=== PATIENT | female | born 1975 | race Caucasian/White ===

== ENCOUNTER → 2022-05-19 02:14 | Outpatient (CLI) | payer OTHER, SELFPAY ==
[2022-05-19 10:38] LABS: Influenza A QL RT-PCR Negative (Negative); Influenza B QL RT-PCR Negative (Negative); SARS-CoV-2 RNA PCR Negative
== END ==
PROVIDERS: PCP Family Medicine; Visit Provider Family Medicine
DX: J06.9 Acute upper respiratory infection, unspecified (principal); Z20.822 Contact with and (suspected) exposure to COVID-19
CPT/HCPCS: 87502; C9803; U0003; U0005

== ENCOUNTER 2022-07-15 12:57 | Inpatient (IN) | payer OTHER, SELFPAY ==
[2022-07-15] VITALS (22 sets, daily range): BP systolic 143–179; BP diastolic 54–92; PULSE 82–94; RESP 12–28; TEMP 36.5–36.8; O2SAT 96–100; BMI 34.0
--- NOTE | ~2022-07-15 | NM_ITS ---
EXAMINATION: NM hepatobiliary wo pharm DATE: 07/17/2022 12:39 INDICATION: Gallstones. Elevated liver function tests. COMPARISON: CT and ultrasound dated 07/15/2022 TECHNIQUE: 5 mCi Tc-99m mebrofenin (Choletec) was administered intravenously. Scintigraphic images o f the abdomen were obtained for one hour. FINDINGS: There is both delayed clearance of radiotracer from the blood pool and the heart and spleen as well as decreased excretion of activity from the liver. Small amount of activity is seen in the c ommon bile duct by 25 minutes and in the duodenum at 30 minutes) with very little total activity in t he small bowel by 60 minutes. There is also minimal activity visible in the gallbladder on the 55 and 60 minute images. No evident biliary ductal dilation on either the prior ultrasound or CT which woul d favor a nonspecific hepatopathy such as hepatitis. IMPRESSION: 1. Delayed clearance of blood pool activity and markedly decreased hepatic excretion of activity mayur pite no significant delay in appearance of the minimal amount of excreted activity in the common bile duct and small bowel. This along with the absence of appreciable either intrahepatic or extra hepati c biliary ductal dilation on prior imaging would favor hepatocellular dysfunction such as in the sett ing of hepatitis or more peripheral biliary obstruction at the level level of the canaliculi over a more central biliary obstruction. Reviewed, dictated and finalized at location A. TRIMMER IMPRESSION: 1. Delayed clearance of blood pool activity and markedly decreased hepatic exc retion of activity despite no significant delay in appearance of the minimal am ount of excreted activity in the common bile duct and small bowel. This along w ith the absence of appreciable either intrahepatic or extra hepatic biliary clark keegan dilation on prior imaging would favor hepatocellular dysfunction such as in the setting of hepatitis or more peripheral biliary obstruction at the level l evel of the canaliculi over a more central biliary obstruction.
--- NOTE | ~2022-07-15 | MR_ITS ---
EXAMINATION: MR MRCP wo/w con/w 3D wo ind DATE: 07/19/2022 15:31 INDICATION: Hyperbilirubinemia. TECHNIQUE: Magnetic resonance imaging (MRI) of the abdomen was performed without and with 17 mL Multi Cuong intravenous contrast. Sequences included coronal T2-weighted FS FSE, coronal T2-weighted FSE, a xial T1-weighted LAVA, coronal FS FIESTA, axial dual-echo T1-weighted SPGR, coronal lava-FLEX, sagitt al T2-weighted FSE, axial T2-weighted FSE, and axial DWI. Thick-slab T2-weighted FSE images were obta ined for magnetic resonance cholangiopancreatography (MRCP). Maximum intensity projection 3-D reconst ructions of the volumetric data were created by the technologist. Postcontrast sequences included cor onal LAVA-flex and time course of axial T1-weighted LAVA. COMPARISON: CT abdomen and pelvis 07/15/2022 FINDINGS: ABDOMEN MRI: There are small pleural effusions. There is diffuse hepatic steatosis. The gallbladder i s contracted. There is moderate splenomegaly measuring 16.4 cm. There is a small peripheral infarct i n the spleen. The pancreas, adrenal glands, and kidneys are normal. There are no dilated loops of bow el. There is a 2.6 cm cyst in right adnexa, likely a dominant follicle. There are no pathologically e nlarged lymph nodes. There is trace perisplenic ascites. ABDOMEN MRCP: The common duct is normal and measures 3 mm. No choledocholithiasis. IMPRESSION: 1. Moderate splenomegaly. 2. Small peripheral infarct in the spleen. 3. Diffuse hepatic steatosis. 4. Small pleural effusions. 5. Trace ascites. Reviewed, dictated and finalized at location A. R MANAGER
--- NOTE | ~2022-07-15 | CT_ITS ---
EXAMINATION: CT abdomen pelvis w con DATE: 07/15/2022 18:04 INDICATION: abd pain TECHNIQUE: Computed tomography (CT) of the abdomen and pelvis was performed with 100 mL Omnipaque-350 intravenous contrast. Automated exposure control and iterative reconstruction technique were employe d. The dose-length product was 782.21 mGy-cm. COMPARISON: 05/06/2017. FINDINGS: Lower thorax: Moderate coronary artery calcification. Liver: Enlarged. Biliary/Gallbladder: Partially collapsed. No bile duct dilation. Pancreas: No mass or duct dilation. Spleen: Enlarged Adrenals:No mass. Kidneys: No suspicious mass, stone, or hydronephrosis. Right midpole AML. GI tract: Distal esophageal and gastric wall edema. No small or large bowel dilation. Normal appendix . Mesentery/Peritoneum: Upper abdominal and periaortic lymphadenopathy. Retroperitoneum: No mass. Pelvis: Pelvic organs are within normal limits. Soft Tissues: Bilateral inguinal lymphadenopathy, otherwise the soft tissues tissues and body wall ar e unremarkable. Bones: No acute osseous finding. IMPRESSION: Esophagitis/gastritis. Hepatosplenomegaly. Abdominal and bilateral inguinal lymphadenopathy. Reviewed, dictated and finalized at location K. IMPRESSION: Esophagitis/gastritis. Hepatosplenomegaly. Abdominal and bilateral inguinal lym phadenopathy.
--- NOTE | ~2022-07-15 | US_ITS ---
EXAMINATION: US abdomen limited DATE: 07/15/2022 16:13 INDICATION: abd pain TECHNIQUE: Multiple grayscale and Doppler ultrasound images of limited portions of the abdomen were o btained. COMPARISON: CT abdomen pelvis 05/06/2017. FINDINGS: The visualized portions of the pancreas are normal. The liver is enlarged with increased ec hogenicity and somewhat heterogeneous echotexture. No surface nodularity. Normal hepatopetal flow in the main portal vein. Partially collapsed gallbladder, no wall thickening, 5 mm adherent nonshadowing echogenic focus near the gallbladder neck. The common bile duct measures 3 mm. There was no sonograp hic García sign. IMPRESSION: Hepatomegaly. Echogenic liver, most commonly due to steatosis but also can be seen with hepatitis and fibrosis. 5 mm adherent gallbladder stone, sludge ball, or polyp. Reviewed, dictated and finalized at location K. IMPRESSION: Hepatomegaly. Echogenic liver, most commonly due to steatosis but also can be s een with hepatitis and fibrosis. 5 mm adherent gallbladder stone, sludge ball, or polyp.
--- NOTE | ~2022-07-15 | US_ITS ---
EXAMINATION: US biopsy liver DATE: 07/20/2022 12:46 INDICATION: Increasing liver function tests TECHNIQUE: The procedure including the risks and benefits was discussed with the patient. Risks discu ssed included bleeding and infection. The patient understood the risks and agreed to proceed. The sk in overlying the left hepatic lobe was prepped and draped in usual sterile fashion. Anesthetic was a dministered with 1% lidocaine subcutaneously. An 18 gauge core biopsy needle was advanced under cont inuous ultrasound observation into the liver. 3 core biopsy specimens were obtained. The needle was removed and the entry site was cleaned and dressed. Post procedure ultrasound demonstrated no hemor rhage. FINDINGS: Ultrasound images demonstrate biopsy needle advanced into the left hepatic lobe for random liver biopsy. IMPRESSION: 1. Successful Ultrasound-guided random liver biopsy. Reviewed, dictated and finalized at location A. LY LAW MEDIATOR
--- NOTE | 2022-07-15 13:30 | ED.NAVMDI ---
HPI - Nausea/Vomiting/Diarrhea General Chief complaint: Nausea/Vomiting/Diarrhea Stated complaint: N/V Time Seen by Provider: 07/15/22 13:08 Source: RN notes reviewed History of Present Illness HPI Narrative: Patient presents emergency room from home for nausea vomiting.. Patient states he has been having nausea vomiting for the past 1 week states she has been vomiting approximately 1-2 times a day states that she has had no fevers or chills she denies any abdominal pain she denies any sore throat chest pain cough shortness of breath or any other symptoms. States she does not take any medication for the symptoms patient states she has been feeling dehydrated Related Data Home Medications Medication Instructions Recorded Confirmed Adult Aspirin Regimen 325 mg PO DAILY 07/15/22 07/16/22 Allergies Allergy/AdvReac Type Severity Reaction Status Date / Time adhesive tape Allergy Severe colon to Verified 07/16/22 00:17 skin Review of Systems Review of Systems: Gen.: Denies fevers or chills ENT: reports rhinorrhea Respiratory: Denies shortness of breath or cough CV: Denies chest pain or palpitations GI: See HPI denies burning, urgency, frequency or hematuria Musculoskeletal: Denies back pain or muscle pain Neuro: Denies numbness, tingling, weakness or focal weakness Skin: Denies rash Except as documented, all other systems reviewed and negative [facility] Past Medical History Medical History (Updated 07/16/22 @ 14:26 by Sydnie Cespedes APRN) Diabetes History of CVA (cerebrovascular accident) Hyperlipidemia Hypertension Seasonal allergic rhinitis Surgical History Surgical History H/O section Family History Family History Father Diabetes mellitus Hypertension Depression Mother Hypertension Grandparent Hypertension Cerebrovascular accident Son Asthma Social History Social History Smoking status: Never smoker Alcohol intake: current Drinks per week: 1 Alcohol use details: seldom; socially Substance use: never Substance use type: does not use Has the Lack of Transportation Kept You From Medical Appointments or From Getting Medications?: No Within the Past 12 Months, Were You Worried Whether Your Food Would Run Out Before You Got Money to Buy More?: Never True What is Your Housing Situation Today?: I Have Housing Are You Worried That in the Next 2 Months, You May Not Have Your Own Housing to Live In?: No Do You Have Trouble Paying Your Heating Or Electricity Bill?: No Do You Have Trouble Paying For Medicines?: No Are You Currently Unemployed and Looking for Work?: No Highest Level of Education Completed: High School Diploma/GED Do You Have Trouble With Childcare or the Care of a Family Member?: No Spiritual care concerns: No Exam Narrative: APPEARANCE: No acute distress, nontoxic, resting in bed EYES: EOMI HEENT: Normocephalic, atraumatic, RESPIRATORY: No respiratory distress Clear to auscultation bilaterally with no rhonchi wheezing or rales. CARDIOVASCULAR: Regular rate and rhythm without murmurs rubs or gallops. ABDOMINAL: Soft, nontender, nondistended, no rebound or guarding MUSCULOSKELETAl: Moves all extremities. No clubbing, cyanosis or edema. NEURO: Awake and alert. Following commands, speech normal, no focal deficits SKIN:: Warm, dry. No rashes lesions or abrasions PSYCHIATRIC: Normal affect/mood, Course Course Emergency Course: Discussed with Dr Cook agrees with consult with continued hydration recommends hepatitis panel Discussed with ANDERS Koch for Dr. Guzman agrees with admission Discussed with patient and family results of workup and diagnosis. Discussed need for admission. Patient and family understand and agree to current treatment plan Vital Signs Vital sign
[2022-07-15] MEDS: SODIUM CHLORIDE 0.9% IV 1,000 ML 999 ML IV CONT ×2 (13:35→13:55)
[2022-07-15] MEDS: FAMOTIDINE 20 MG/2 ML VIAL IV PUSH (13:36)
[2022-07-15] MEDS: ONDANSETRON INJ 4 MG/2 ML VIAL IV PUSH ×2 (13:36→23:26)
[2022-07-15 13:38] LABS: Basophils Absolute Auto 0.1 K/mm3 (0.0-0.1); Basophils Percent Auto 1.2 % (0.2-1.2); Eosinophils Percent Auto 0.5 % (0-4.4); Hematocrit 44.8 % (37.0-47.0); Hemoglobin 14.9 g/dL (12.0-15.0); Immature Granulocyte Absolute 0.04 K/mm3 (0.00-0.031); Lymphocytes Absolute Auto 2.29 K/mm3 (0.9-3.2); Lymphocytes Percent Auto 55.3 % (18.3-44.2); Mean Corpuscular HGB Conc 33.3 g/dl (32-36); Mean Corpuscular Hemoglobin 27.4 pg (26-34); Mean Corpuscular Volume 82.4 fl (80-100); Mean Platelet Volume 9.7 fl (7.4-10.4); Monocytes Absolute Auto 0.4 K/mm3 (0.1-0.6); Monocytes Percent Auto 8.9 % (2.6-8.5); Neutrophils Absolute Auto 1.4 K/mm3 (1.3-6.7); Neutrophils Percent Auto 33.1 % (45.5-73.1); Platelet Count Result 183 k/mm3 (150-375); Red Blood Count 5.44 M/mm3 (4.2-5.4); White Blood Count 4.1 K/mm3 (4.5-10.0)
[2022-07-15 13:50] LABS: Alanine Aminotransferase 205 U/L (6-35); Albumin Level 3.7 g/dL (3.5-5.1); Alkaline Phosphatase 779 U/L (38-126); Anion Gap 15 mmol/L (8-16); Aspartate Amino Transferase 173 U/L (14-36); Bilirubin,Total 3.4 mg/dL (0.2-1.3); Blood Urea Nitrogen 8 mg/dL (7-17); Carbon Dioxide 25 mmol/L (22-30); Chloride 95 mmol/L (98-107); Estimated CRCL calculation 87 ml/min; Estimated Glomerular Filt Rate > 60; Glucose 364 mg/dL (65-110); Lipase 65 U/L (23-300); Potassium 4.3 mmol/L (3.4-5.0); Sodium 135 mmol/L (137-145)
[2022-07-15 14:03] LABS: Appearance Urine Clear (Clear); Bilirubin Urine 3+ (Negative); Blood Urine Negative (Negative); Color Urine Amber (Yellow); Glucose Urine UA 3+ mg/dL (Negative); Ketones Urine Trace mg/dL (Negative); Leukocyte Esterase Ur Negative LEU/UL (Negative); Nitrate Urine Negative (Negative); Protein Urine 1+ mg/dL (Negative); Urobilinogen Urine >=8.0 mg/dL (<2.0)
[2022-07-15 14:12] LABS: Bacteria Urine Trace /hpf; Hyaline Casts Urine 15-19 /lpf; Mucus Urine Rare /lpf; Squamous Epithelial Cell Urine Many /hpf (Few)
[2022-07-15 14:26] LABS: Add Urine Microscopic? YES
[2022-07-15 15:08] LABS: Platelet Estimate Adequate (Adequate); Schistocytes None Seen (NORMAL)
[2022-07-15] MEDS: PROMETHAZINE HCL 25 MG/ML AMPUL 12.5 MG IV PUSH (16:39)
[2022-07-15] MEDS: KETOROLAC 30 MG/ML VIAL (*BKC) IV PUSH (16:48)
[2022-07-15 20:14] LABS: SARS-CoV-2 RNA PCR Negative
--- NOTE | 2022-07-15 20:27 | PM.IMHP ---
H&P: HPI History of Present Illness Date/Time: 07/15/22 20:27 Chief Complaint: nausea, vomiting, diarrhea Narrative: This is a 46-year-old female with past medical history significant for hypertension, dyslipidemia, obesity. patient presents to the emergency room due to nausea, vomiting, diarrhea for several days, denies any fevers, rigors, chills, cough, sputum production, sore throat, body aches and pains, weight loss, no abdominal pain. Preliminary workup was significant for AST/AST and alk phos 173 / 205 /779, TOTAL BILI 3.4 URINE SHOWED 10-[address] OF ABDOMEN WAS REPORTED : IMPRESSION: Esophagitis/gastritis. Hepatosplenomegaly. Abdominal and bilateral inguinal lymphadenopathy. RIGHT UPPER QUADRANT ULTRASOUND WAS REPORTED : IMPRESSION: Hepatomegaly. Echogenic liver, most commonly due to steatosis but also can be seen with hepatitis and fibrosis. 5 mm adherent gallbladder stone, sludge ball, or polyp. Review of Systems Review of Systems: NAUSEA, VOMITING, DIARRHEA. Constitutional: Constitutional: Denies body ache(s), Denies chills, Denies fatigue, Denies fever(s), Denies malaise and Denies night sweats Eyes: Eyes: Denies change in vision ENT: Denies dysphagia, Denies vertigo, Denies dizziness and Denies odynophagia Cardiovascular: Cardiovascular: Denies chest pain, Denies leg edema and Denies dyspnea Respiratory: Respiratory: Denies chest congestion and Denies cough Gastrointestinal: Gastrointestinal: Denies abdominal pain, Denies dyspepsia, Denies heartburn, Reports diarrhea, Reports nausea and Reports vomiting Genitourinary: Genitourinary: Denies dysuria Musculoskeletal: Musculoskeletal: Denies arthralgias Integumentary/Breasts: Skin/Breast: Denies rash Neurologic: Denies vertigo, Denies dizziness, Denies focal weakness and Denies Sensory deficit (Neuro) Psychiatric: Psychiatric: Reports no additional psychiatric complaints and Reports as per HPI Endocrine: Endocrine: Denies cold intolerance, Denies flushing, Denies heat intolerance, Denies polyphagia, Denies polydipsia and Denies palpitations Hematologic/Lymphatic: Hematologic/Lymphatic: Reports no additional hematologic/lymphatic complaints and Reports as per HPI Allergic/Immunologic: Allergic/Immunologic: Reports no additional allergic/immunologic complaints and Reports as per HPI [facility] Past Medical History Medical History Diabetes History of CVA (cerebrovascular accident) Hyperlipidemia Hypertension Seasonal allergic rhinitis Surgical History Surgical History H/O section Family History Family History Father Diabetes mellitus Hypertension Depression Mother Hypertension Grandparent Hypertension Cerebrovascular accident Son Asthma Social History Social History Smoking status: Never smoker Alcohol intake: current Drinks per week: 1 Alcohol use details: seldom; socially Substance use: never Substance use type: does not use Has the Lack of Transportation Kept You From Medical Appointments or From Getting Medications?: No Within the Past 12 Months, Were You Worried Whether Your Food Would Run Out Before You Got Money to Buy More?: Never True What is Your Housing Situation Today?: I Have Housing Are You Worried That in the Next 2 Months, You May Not Have Your Own Housing to Live In?: No Do You Have Trouble Paying Your Heating Or Electricity Bill?: No Do You Have Trouble Paying For Medicines?: No Are You Currently Unemployed and Looking for Work?: No Highest Level of Education Completed: High School Diploma/GED Do You Have Trouble With Childcare or the Care of a Family Member?: No Spiritual care concerns: No Meds Home Medications and Allergies Home
--- NOTE | 2022-07-15 20:50 | ADMGEN ---
This patient, Dinora Devine, was admitted to Medical Room 343-01. Patient/family oriented to hospital policies and general routines including ID bracelet, bed and alarms, visiting hours, pain management, procedures, bathroom and other care routines, personal items, smoking policy, room service/diet, and visiting hours. Information on how to activate the Rapid Response Team has been discussed. Patient/Family are encouraged to report perceived risks to care and to ask questions if they do not understand what they are told or what they should do.
[2022-07-15 21:20] LABS: Glucose Point of Care 184 mg/dl (65-105)
[2022-07-15 22:13] LABS: Hepatitis B Surface Antigen Negative (Negative)
[2022-07-15] MEDS: SODIUM CHLORIDE 0.9% IV 1,000 ML 125 ML IV CONT (22:20)
[2022-07-15 22:28] LABS: Hepatitis B Core IgM Result Negative (Negative)
[2022-07-15 22:30] LABS: Hepatitis C Virus Antibody Negative (Negative)
[2022-07-16] MEDS: traZODone HCL 50 MG TABLET PO (00:10)
--- NOTE | 2022-07-16 01:37 | PC.NURSE ---
Daylight Savings Time For Daylight Savings Time Ending in the Fall - Clocks are moved back. For Daylight Savings Time Beginning in the Spring - Clocks are moved ahead. For [facility], the time of change occurs at 0200 hrs. Time is taken from the seismic prospecting observer helper. This entry on the patient's chart recognizes the change in time reflected during documentation. Example: 2 entries for vital signs may be charted for 0200 hrs.
[2022-07-16] MEDS: ONDANSETRON INJ 4 MG/2 ML VIAL IV PUSH ×2 (02:44→15:27)
[2022-07-16 03:39] LABS: HAV RESULT Negative (Negative)
[2022-07-16 05:12] VITALS: BP 160/75; PULSE 89; RESP 20; TEMP 36.7; O2SAT 98
[2022-07-16 06:50] LABS: Basophils Absolute Auto 0.1 K/mm3 (0.0-0.1); Basophils Percent Auto 1.4 % (0.2-1.2); Eosinophils Percent Auto 0.2 % (0-4.4); Hematocrit 39.1 % (37.0-47.0); Hemoglobin 12.9 g/dL (12.0-15.0); Immature Granulocyte Absolute 0.02 K/mm3 (0.00-0.031); Immature Granulocyte Percent A 0.5 % (0-0.5); Lymphocytes Absolute Auto 2.79 K/mm3 (0.9-3.2); Mean Corpuscular Hemoglobin 27.6 pg (26-34); Mean Corpuscular Volume 83.7 fl (80-100); Mean Platelet Volume 9.3 fl (7.4-10.4); Monocytes Absolute Auto 0.3 K/mm3 (0.1-0.6); Monocytes Percent Auto 7.9 % (2.6-8.5); Neutrophils Percent Auto 23.3 % (45.5-73.1); Platelet Count Result 183 k/mm3 (150-375); Red Blood Count 4.67 M/mm3 (4.2-5.4); Red Cell Distribution Width 13.2 % (11.5-14.5); White Blood Count 4.2 K/mm3 (4.5-10.0)
[2022-07-16 06:55] LABS: Alanine Aminotransferase 197 U/L (6-35); Albumin Level 3.2 g/dL (3.5-5.1); Alkaline Phosphatase 631 U/L (38-126); Anion Gap 10 mmol/L (8-16); Aspartate Amino Transferase 161 U/L (14-36); Bilirubin,Total 2.7 mg/dL (0.2-1.3); Blood Urea Nitrogen 7 mg/dL (7-17); Calcium 8.2 mg/dL (8.4-10.2); Carbon Dioxide 22 mmol/L (22-30); Chloride 103 mmol/L (98-107); Estimated CRCL calculation 116 ml/min; Estimated Glomerular Filt Rate > 60; Glucose 210 mg/dL (65-110); Lipase 25 U/L (23-300); Potassium 4.2 mmol/L (3.4-5.0); Sodium 135 mmol/L (137-145)
[2022-07-16] MEDS: SODIUM CHLORIDE 0.9% IV 1,000 ML 125 ML IV CONT ×2 (07:08→20:18)
--- NOTE | 2022-07-16 08:27 | WPDGICN ---
Assessment and Plan Assessment and plan (1) Abnormal LFTs: Code(s): R79.89 - Other specified abnormal findings of blood chemistry Status: Acute Assessment and Plan: Patient with elevated LFTs that likely correlates with 1 week of illness with nausea vomiting. Hepatitis is suspected. Imaging studies do reveal apparent gallstone within the gallbladder but no obvious associated inflammation. Initial hepatitis serologies are negative. Plan for additional lab work to include fractionation of bilirubin. As well as alkaline phosphatase. She may benefit from MRCP or HIDA scan but suspect she has underlying hepatitis. Continued supportive care for now strongly advised. (2) UTI (urinary tract infection): Code(s): N39.0 - Urinary tract infection, site not specified Status: Acute Assessment and Plan: UTI suspected by urinalysis. Antibiotic therapy advised at this point. GI Consult Note Consult date/time: 07/16/22 08:27 Reason for consult: Elevated LFTs. HPI: Dinora Devine is a 46 year old female Who reports that she began to have episodes of nausea vomiting 1 week ago. This prompted her to miss several days of work. Because of continued malaise nausea vomiting she presented to the emergency room last evening. She was found to have elevated LFTs. Patient denies any prior history of hepatitis. She has no known exposure for hepatitis. She did has no tattoos. She does not drink alcohol to excess. She has had no recent travel. She has no ill pets. Family history is otherwise noncontributory. Review of Systems Review of Systems: Review of systems noncontributory. [facility] Past Medical History Medical History Diabetes History of CVA (cerebrovascular accident) Hyperlipidemia Hypertension Seasonal allergic rhinitis Surgical History Surgical History H/O section Family History Family History Father Diabetes mellitus Hypertension Depression Mother Hypertension Grandparent Hypertension Cerebrovascular accident Son Asthma Social History Social History Smoking status: Never smoker Alcohol intake: current Drinks per week: 1 Alcohol use details: seldom; socially Substance use: never Substance use type: does not use Has the Lack of Transportation Kept You From Medical Appointments or From Getting Medications?: No Within the Past 12 Months, Were You Worried Whether Your Food Would Run Out Before You Got Money to Buy More?: Never True What is Your Housing Situation Today?: I Have Housing Are You Worried That in the Next 2 Months, You May Not Have Your Own Housing to Live In?: No Do You Have Trouble Paying Your Heating Or Electricity Bill?: No Do You Have Trouble Paying For Medicines?: No Are You Currently Unemployed and Looking for Work?: No Highest Level of Education Completed: High School Diploma/GED Do You Have Trouble With Childcare or the Care of a Family Member?: No Spiritual care concerns: No Meds Home Medications and Allergies Home Medications Medication Instructions Recorded Confirmed Type hydrochlorothiazide 12.5 mg tablet 12.5 mg PO DAILY #90 tabs 12/06/20 07/16/22 Rx lisinopril 20 mg tablet 20 mg PO DAILY #90 tabs 12/06/20 07/16/22 Rx simvastatin 10 mg tablet 10 mg PO DAILY #90 tabs 12/06/20 07/16/22 Rx Adult Aspirin Regimen 325 mg PO DAILY 07/15/22 07/16/22 History Allergies Allergy/AdvReac Type Severity Reaction Status Date / Time adhesive tape Allergy Severe colon to Verified 07/16/22 00:17 skin Vital Signs Vital Signs - 24 hr 07/15/22 13:01 07/15/22 13:16 07/15/22 13:17 Temperature 98.2 F 97.7 F Pulse Rate 93 91 90 Respiratory Rate 16 15 15 Blood Pressure 179/8
[2022-07-16] MEDS: PANTOPRAZOLE SODIUM IV 40 MG VIAL IV PUSH (09:45)
[2022-07-16] MEDS: lisinopriL 20 MG TABLET PO (09:45)
[2022-07-16] MEDS: hydroCHLOROthiazide 12.5 MG CAPSULE PO (09:45)
[2022-07-16 09:52] LABS: Lymphocytes Percent Auto 66.7 % (18.3-44.2)
[2022-07-16 10:39] LABS: Alanine Aminotransferase 178 U/L (6-35); Albumin Level 3.1 g/dL (3.5-5.1); Alkaline Phosphatase 593 U/L (38-126); Aspartate Amino Transferase 151 U/L (14-36); Bilirubin Direct 0.6 mg/dL (0-0.3); Bilirubin,Total 2.4 mg/dL (0.2-1.3)
[2022-07-16 10:40] LABS: Bilirubin Direct 0.7 mg/dL (0-0.3); Bilirubin Indirect 0.5 mg/dL (0-1.1); Bilirubin,Total 2.5 mg/dL (0.2-1.3)
[2022-07-16 10:43] LABS: Hemoglobin A1C 11.2 % (<5.7)
[2022-07-16] MEDS: INSULIN ASPART (*BKC) 100 UNITS/ML SUB-Q ×2 (13:00→18:01)
--- NOTE | 2022-07-16 13:01 | PM.IMPN ---
Progress Note: A&P Assessment and Plan (1) Abnormal LFTs: Code(s): R79.89 - Other specified abnormal findings of blood chemistry Status: Acute Assessment and Plan: Patient admitted for c/o abdominal pain. LFTs elevated on admission- Tbili 3.4, AST 173, ALT 205, Alk Phos 779. CT of abdomen and pelvis with esophagitis/gastritis, hepatosplenomegaly and abdominal and bilateral inguinal lymphadenopathy. right upper quadrant ultrasound shows hepatomegaly, echogenic liver and 5 mm adherent gallbladder stone. hepatitis panel negative. GI consulted and appreciate recommendations. Trend LFTs. HIDA scan ordered and pending. (2) Nausea and vomiting: Qualifiers: Vomiting type: unspecified Qualified Code(s): R11.2 - Nausea with vomiting, unspecified Code(s): R11.2 - Nausea with vomiting, unspecified Status: Acute Assessment and Plan: Likely secondary to above. Continue supportive care and PRN antiemetics. (3) Hypertension: Qualifiers: Hypertension type: essential hypertension Qualified Code(s): I10 - Essential (primary) hypertension Code(s): I10 - Essential (primary) hypertension Status: Acute Assessment and Plan: Chronic, patient reports she has not been taking her antihypertensive medications in the past year. Resumed HCTZ 12.5 mg daily and lisinopril 20 mg daily. Monitor vitals. (4) Hyperlipidemia: Qualifiers: Hyperlipidemia type: unspecified Qualified Code(s): E78.5 - Hyperlipidemia, unspecified Code(s): E78.5 - Hyperlipidemia, unspecified Status: Acute Assessment and Plan: Chronic, holding statin due to elevated LFTs (5) UTI (urinary tract infection): Qualifiers: Urinary tract infection type: site unspecified Hematuria presence: without hematuria Qualified Code(s): N39.0 - Urinary tract infection, site not specified Code(s): N39.0 - Urinary tract infection, site not specified Status: Acute Assessment and Plan: UA with negative nitrates and leukocytes, 3+ glucose, 10-15 WBC and many epi cells. Unclear if true UTI or urgency/frequency secondary to glucosuria, however, patient also c/o right flank pain. Continue Rocephin 1 gram IV Q24 hours. Send urine for culture. (6) Type 2 diabetes mellitus, uncontrolled: Status: Acute Assessment and Plan: Chronic, patient reports diabetes diagnosis in 2010 and was taking metformin for 5-6 years, however, she stopped this due to reading about side effects and has not been taking any other medications. Glucose 210 on admission. A1c 11.2% Start accu-checks AC/HS with aspart low-sliding scale meal correction and basal lantus 13 units at HS. She does not want to start insulin outpatient as she does not like needles; she will likely need multiple oral medications for glucose control. Plan CODE STATUS: FULL CODE Disposition: Home when medically stable. Time Spent With Patient Time with patient: 15 - 25 minutes (>50% time spent with patient education. ) Subjective Date/time seen: 07/16/22 13:01 She reports right flank pain that started today while walking in the hallway. She reports that the pain is chronic, aching and not worsened by anything. She denies abdominal pain, nausea, or emesis. Her urine is dark and she reports urinary frequency. Review of Systems Review of Systems: All systems reviewed & are unremarkable except as noted in HPI and below Exam Narrative: General: No acute distress.?Well-developed adult female sitting up in bed. Mental Status/Psych: Awake, alert and oriented x3 with clear speech. Neutral mood and affect. Pleasant and cooperative. Skin: Skin fair, warm, and without rashes or lesions. Normal color for ethnicity. Fair turgor.? HEENT: Normocephalic. Conjunctivae are clear. Sclera is non-icteric. EOM intact. PERRL. Grossly normal hearing. Oral mucosa moist. Neck: Supple. Heart: S1 and
[2022-07-16 13:05] LABS: Glucose Point of Care 327 mg/dl (65-105)
[2022-07-16 15:34] VITALS: BP 144/77; PULSE 98; RESP 16; TEMP 37.4; O2SAT 99
[2022-07-16 18:02] LABS: Glucose Point of Care 226 mg/dl (65-105)
[2022-07-16 20:08] LABS: Glucose Point of Care 245 mg/dl (65-105)
[2022-07-16] MEDS: INSULIN GLARGINE (*BKC) 100 UNITS/ML 13 UNITS SUB-Q (20:13)
[2022-07-16 21:45] VITALS: BP 169/75; PULSE 90; RESP 16; TEMP 36.7; O2SAT 97
[2022-07-17] MEDS: traZODone HCL 50 MG TABLET PO (02:01)
[2022-07-17] MEDS: SODIUM CHLORIDE 0.9% IV 1,000 ML 125 ML IV CONT ×2 (04:18→17:09)
[2022-07-17] MEDS: ONDANSETRON INJ 4 MG/2 ML VIAL IV PUSH (04:39)
[2022-07-17 05:10] VITALS: BP 172/79; PULSE 90; RESP 18; TEMP 36.5; O2SAT 100
[2022-07-17] MEDS: hydrALAZINE HCL 20 MG/ML VIAL 10 MG IV PUSH ×2 (05:25→20:36)
[2022-07-17 05:42] LABS: Hematocrit 38.3 % (37.0-47.0); Hemoglobin 12.7 g/dL (12.0-15.0); Mean Corpuscular HGB Conc 33.2 g/dl (32-36); Mean Corpuscular Hemoglobin 27.8 pg (26-34); Mean Corpuscular Volume 83.8 fl (80-100); Mean Platelet Volume 9.1 fl (7.4-10.4); Platelet Count Result 181 k/mm3 (150-375); Red Blood Count 4.57 M/mm3 (4.2-5.4); Red Cell Distribution Width 13.2 % (11.5-14.5); White Blood Count 4.8 K/mm3 (4.5-10.0)
[2022-07-17 05:44] LABS: Alanine Aminotransferase 199 U/L (6-35); Albumin Level 3.1 g/dL (3.5-5.1); Alkaline Phosphatase 636 U/L (38-126); Anion Gap 14 mmol/L (8-16); Aspartate Amino Transferase 162 U/L (14-36); Bilirubin,Total 2.9 mg/dL (0.2-1.3); Blood Urea Nitrogen 3 mg/dL (7-17); Calcium 8.4 mg/dL (8.4-10.2); Carbon Dioxide 25 mmol/L (22-30); Chloride 100 mmol/L (98-107); Estimated CRCL calculation 116 ml/min; Estimated Glomerular Filt Rate > 60; Glucose 190 mg/dL (65-110); Potassium 3.6 mmol/L (3.4-5.0); Sodium 139 mmol/L (137-145)
[2022-07-17 06:00] VITALS: BP 157/80
[2022-07-17] MEDS: hydroCHLOROthiazide 12.5 MG CAPSULE PO (08:44)
[2022-07-17] MEDS: lisinopriL 20 MG TABLET PO (08:44)
[2022-07-17] MEDS: LIDOCAINE 5% PATCH 1 PATCH TRANSDERM (08:44)
[2022-07-17] MEDS: PANTOPRAZOLE SODIUM IV 40 MG VIAL IV PUSH (08:45)
[2022-07-17 08:54] LABS: Glucose Point of Care 199 mg/dl (65-105)
--- NOTE | 2022-07-17 12:08 | PM.IMPN ---
Progress Note: A&P Assessment and Plan (1) Abnormal LFTs: Code(s): R79.89 - Other specified abnormal findings of blood chemistry Status: Acute Assessment and Plan: Patient admitted for c/o abdominal pain. LFTs elevated on admission- Tbili 3.4, AST 173, ALT 205, Alk Phos 779. CT of abdomen and pelvis with esophagitis/gastritis, hepatosplenomegaly and abdominal and bilateral inguinal lymphadenopathy. right upper quadrant ultrasound shows hepatomegaly, echogenic liver and 5 mm adherent gallbladder stone. hepatitis panel negative. GI consulted and appreciate recommendations. Trend LFTs-T bili 2.9, AST 162, ALT 199, alk phos 363, mildly increased from yesterday HIDA scan shows delayed clearance and blood pool activity in markedly decreased hepatic excretion of activity that would favor hepatocellular dysfunction in the setting of hepatitis (2) Nausea and vomiting: Qualifiers: Vomiting type: unspecified Qualified Code(s): R11.2 - Nausea with vomiting, unspecified Code(s): R11.2 - Nausea with vomiting, unspecified Status: Acute Assessment and Plan: Likely secondary to above. Continue supportive care and PRN antiemetics. (3) Hypertension: Qualifiers: Hypertension type: essential hypertension Qualified Code(s): I10 - Essential (primary) hypertension Code(s): I10 - Essential (primary) hypertension Status: Acute Assessment and Plan: Chronic, patient reports she has not been taking her antihypertensive medications in the past year. Resumed HCTZ 12.5 mg daily and lisinopril 20 mg daily. Monitor vitals. (4) Hyperlipidemia: Qualifiers: Hyperlipidemia type: unspecified Qualified Code(s): E78.5 - Hyperlipidemia, unspecified Code(s): E78.5 - Hyperlipidemia, unspecified Status: Acute Assessment and Plan: Chronic, holding statin due to elevated LFTs (5) UTI (urinary tract infection): Qualifiers: Hematuria presence: without hematuria Urinary tract infection type: site unspecified Qualified Code(s): N39.0 - Urinary tract infection, site not specified Code(s): N39.0 - Urinary tract infection, site not specified Status: Acute Assessment and Plan: UA with negative nitrates and leukocytes, 3+ glucose, 10-15 WBC and many epi cells. Unclear if true UTI or urgency/frequency secondary to glucosuria, however, patient also c/o right flank pain. Continue Rocephin 1 gram IV Q24 hours. Urine culture shows mixed john, since patient had suprapubic tenderness, we will continue Rocephin x3 doses (6) Type 2 diabetes mellitus, uncontrolled: Qualifiers: Glycemic state: with hyperglycemia Qualified Code(s): E11.65 - Type 2 diabetes mellitus with hyperglycemia Status: Acute Assessment and Plan: Chronic, patient reports diabetes diagnosis in 2010 and was taking metformin for 5-6 years, however, she stopped this due to reading about side effects and has not been taking any other medications. Glucose 210 on admission. A1c 11.2% Start accu-checks AC/HS with aspart low-sliding scale meal correction and basal lantus 13 units at HS. She does not want to start insulin outpatient as she does not like needles; she will likely need multiple oral medications for glucose control. Plan CODE STATUS: FULL CODE Disposition: Home when medically stable. Time Spent With Patient Time with patient: 15 - 25 minutes Subjective Date/time seen: 07/17/22 12:08 She still has urinary frequency. She denies dysuria and right flank pain is improved. She had an episode of emesis overnight and states she usually has this when she feels febrile. No BM since Sunday, which was small, she reports. No chest pain, SOB, palpitations or current nausea at this time. Review of Systems Review of Systems: All systems reviewed & are unremarkable except as noted in HPI and below Exam Narrative: General:
[2022-07-17 12:58] LABS: Glucose Point of Care 133 mg/dl (65-105)
--- NOTE | 2022-07-17 14:29 | WPDGIPROGNO ---
Progress Note: A&P Assessment and Plan (1) Abnormal LFTs: Code(s): R79.89 - Other specified abnormal findings of blood chemistry Status: Acute Assessment and Plan: Patient with elevated LFTs. Appears to have hepatocellular disease by HIDA scan. This is consistent with apparent hepatitis. The etiology of this is unclear. Hepatitis ABC serologies are negative. Continue supportive care for now. Will allow liquid diet and advance as tolerated. (2) Nausea and vomiting: Qualifiers: Vomiting type: unspecified Qualified Code(s): R11.2 - Nausea with vomiting, unspecified Code(s): R11.2 - Nausea with vomiting, unspecified Status: Acute Assessment and Plan: Patient's nausea and vomiting appears to correlate with her hepatitis. Symptoms have been present for 1 week. Plan to continue to monitor LFTs and supportive care for now. Liver biopsy will be deferred unless LFTs continue to rise. (3) Type 2 diabetes mellitus, uncontrolled: Status: Acute (4) UTI (urinary tract infection): Qualifiers: Urinary tract infection type: site unspecified Hematuria presence: without hematuria Qualified Code(s): N39.0 - Urinary tract infection, site not specified Code(s): N39.0 - Urinary tract infection, site not specified Status: Acute Subjective Date/time seen: 07/17/22 14:29 Patient alert this morning sitting in bed. Reports she had emesis during HIDA scan. Denies other pain at present Review of Systems Review of Systems: Review of systems noncontributory. Exam Narrative: Physical exam reveals patient be alert. Vital signs stable. HEENT exam reveals no icterus. Lungs are clear to auscultation and percussion. Heart without murmur. Abdomen is obese soft nontender with no organomegaly. Objective Data Vital Signs Vital Signs: Vital Signs - 24 hr 07/16/22 15:34 07/16/22 21:45 07/17/22 05:10 Temperature 99.3 F 98.0 F 97.7 F Pulse Rate 98 90 90 Respiratory Rate 16 16 18 Blood Pressure 144/77 H 169/75 H 172/79 H Pulse Oximetry 99 97 100 Oxygen Delivery 07/17/22 06:00 07/17/22 08:45 Temperature Pulse Rate Respiratory Rate Blood Pressure 157/80 H Pulse Oximetry Oxygen Delivery Room Air Intake/Output Intake/Output: Intake & Output 07/15/22 07/16/22 07/16/22 07/17/22 00:59 00:59 23:59 23:59 Intake Total 1200 Output Total Balance 1200 Meds/Results Medications: Active Medications Generic Name Dose Route Start Last Admin Trade Name Freq PRN Reason Stop Dose Admin Acetaminophen 325 mg 07/16/22 12:55 Acetaminophen 325 Mg Tablet PO Q6H PRN Mild Pain (1-3) or Fever Dextrose 12.5 gm 07/16/22 08:41 Dextrose 50% 25 Gm/50 Ml Syringe IV PUSH PRN PRN Hypoglycemia Protocol Glucagon 1 mg 07/16/22 08:41 Glucagon For Inj 1 Mg Vial IM PRN PRN Hypoglycemia Protocol Glucose 15 gm 07/16/22 08:41 Glucose Oral Gel 15 Gm Of Glucse In 37.5 Gm Tube PO PRN PRN Hypoglycemia Protocol Hydralazine HCl 10 mg 07/16/22 12:52 07/17/22 05:25 Hydralazine Hcl 20 Mg/Ml Vial IV PUSH 10 mg Q6HR PRN Administration Blood Pressure - High Hydrochlorothiazide 12.5 mg 07/16/22 09:00 07/17/22 08:44 Hydrochlorothiazide 12.5 Mg Capsule PO 12.5 mg DAILY KEV Administration Sodium Chloride 1,000 mls @ 125 mls/hr 07/15/22 19:20 07/17/22 13:05 Normal Saline Iv IV CONT Not Given .Q8H KEV Ceftriaxone Sodium/Dextrose 1 gm in 50 mls @ 100 mls/hr 07/16/22 02:00 07/17/22 02:02 Rocephin 1 Gm/D5w 50 Ml IVPB Infused Q24H KEV Infusion Dextrose 1,000 mls @ 100 mls/hr 07/16/22 08:41 Dextrose 5% 1,000 Ml IVPB PRN PRN Hypoglycemia Protocol Insulin Aspart 2 - 5 units 07/16/22 12:00 07/17/22 12:58 Insulin Aspart (*Bkc) 100 Units/Ml SUB-Q Not Given [facility] Protocol Insulin Glargine 13 units
[2022-07-17 14:46] VITALS: BP 142/69; PULSE 92; RESP 18; TEMP 36.2; O2SAT 98
[2022-07-17 17:15] LABS: Glucose Point of Care 151 mg/dl (65-105)
[2022-07-17] MEDS: INSULIN GLARGINE (*BKC) 100 UNITS/ML 13 UNITS SUB-Q (20:36)
[2022-07-17 21:00] LABS: Glucose Point of Care 171 mg/dl (65-105)
[2022-07-17 21:39] VITALS: BP 172/68; PULSE 100; RESP 16; TEMP 36.7; O2SAT 93
[2022-07-17] MEDS: traMADol HCL (*CRX) 50 MG TABLET PO (23:24)
[2022-07-18] MEDS: SODIUM CHLORIDE 0.9% IV 1,000 ML 125 ML IV CONT (01:33)
[2022-07-18 06:00] VITALS: BP 165/72; PULSE 76; RESP 16; TEMP 36.7; O2SAT 98
[2022-07-18 06:09] LABS: Hematocrit 39.1 % (37.0-47.0); Hemoglobin 12.8 g/dL (12.0-15.0); Mean Corpuscular HGB Conc 32.7 g/dl (32-36); Mean Corpuscular Hemoglobin 27.1 pg (26-34); Mean Corpuscular Volume 82.8 fl (80-100); Mean Platelet Volume 8.7 fl (7.4-10.4); Platelet Count Result 196 k/mm3 (150-375); Red Blood Count 4.72 M/mm3 (4.2-5.4); Red Cell Distribution Width 13.4 % (11.5-14.5); White Blood Count 5.4 K/mm3 (4.5-10.0)
[2022-07-18 06:21] LABS: Alanine Aminotransferase 276 U/L (6-35); Albumin Level 3.1 g/dL (3.5-5.1); Alkaline Phosphatase 720 U/L (38-126); Anion Gap 7 mmol/L (8-16); Aspartate Amino Transferase 285 U/L (14-36); Bilirubin,Total 3.2 mg/dL (0.2-1.3); Blood Urea Nitrogen 5 mg/dL (7-17); Calcium 8.3 mg/dL (8.4-10.2); Carbon Dioxide 25 mmol/L (22-30); Chloride 103 mmol/L (98-107); Estimated CRCL calculation 98 ml/min; Estimated Glomerular Filt Rate > 60; Glucose 132 mg/dL (65-110); Potassium 3.7 mmol/L (3.4-5.0); Sodium 135 mmol/L (137-145)
[2022-07-18 08:58] LABS: Glucose Point of Care 122 mg/dl (65-105)
[2022-07-18] MEDS: hydroCHLOROthiazide 12.5 MG CAPSULE PO (09:17)
[2022-07-18] MEDS: PANTOPRAZOLE SODIUM IV 40 MG VIAL IV PUSH (09:17)
[2022-07-18] MEDS: lisinopriL 20 MG TABLET PO (09:17)
--- NOTE | 2022-07-18 10:15 | WPDGIPROGNO ---
Progress Note: A&P Assessment and Plan (1) Hepatitis: Code(s): K75.9 - Inflammatory liver disease, unspecified Status: Acute Assessment and Plan: Patient with apparent hepatocellular inflammation hepatitis of uncertain etiology. Would be cautious with any new medications. Continue to follow her LFTs conservatively. Should LFTs continue to rise then liver biopsy will be performed. Otherwise typically wait 6 months before performing liver biopsy to give chance for them to normalize. Etiology for hepatitis remains unclear at this point. Will plan to follow as an outpatient. Monitor LFTs more frequently at 1st. Perhaps twice a week for now. Advance diet as tolerated. (2) Abnormal LFTs: Code(s): R79.89 - Other specified abnormal findings of blood chemistry Status: Acute (3) Nausea and vomiting: Qualifiers: Vomiting type: unspecified Qualified Code(s): R11.2 - Nausea with vomiting, unspecified Code(s): R11.2 - Nausea with vomiting, unspecified Status: Acute (4) Type 2 diabetes mellitus, uncontrolled: Qualifiers: Glycemic state: with hyperglycemia Qualified Code(s): E11.65 - Type 2 diabetes mellitus with hyperglycemia Status: Acute Subjective Date/time seen: 07/18/22 10:15 Patient alert fairly comfortable this morning. Tolerated full liquid diet. Only modest abdominal pain described. Review of Systems Review of Systems: Review of systems noncontributory. Exam Narrative: physical exam reveals patient be alert. Vital signs stable. HEENT exam unremarkable. Lungs clear. Heart without murmur. Abdomen is obese soft nontender with no organomegaly. Objective Data Vital Signs Vital Signs: Vital Signs - 24 hr 07/17/22 14:46 07/17/22 21:39 07/18/22 06:00 Temperature 97.2 F L 98.1 F 98.0 F Pulse Rate 92 100 76 Respiratory Rate 18 16 16 Blood Pressure 142/69 H 172/68 H 165/72 H Pulse Oximetry 98 93 98 Intake/Output Intake/Output: Intake & Output 07/16/22 07/16/22 07/17/22 07/18/22 00:59 23:59 23:59 23:59 Intake Total 3440 1290 Output Total Balance 3440 1290 Meds/Results Medications: Active Medications Generic Name Dose Route Start Last Admin Trade Name Freq PRN Reason Stop Dose Admin Acetaminophen 325 mg 07/16/22 12:55 Acetaminophen 325 Mg Tablet PO Q6H PRN Mild Pain (1-3) or Fever Cefdinir 300 mg 07/19/22 09:00 Cefdinir 300 Mg Capsule PO 07/21/22 08:59 Q12HR KEV Dextrose 12.5 gm 07/16/22 08:41 Dextrose 50% 25 Gm/50 Ml Syringe IV PUSH PRN PRN Hypoglycemia Protocol Glucagon 1 mg 07/16/22 08:41 Glucagon For Inj 1 Mg Vial IM PRN PRN Hypoglycemia Protocol Glucose 15 gm 07/16/22 08:41 Glucose Oral Gel 15 Gm Of Glucse In 37.5 Gm Tube PO PRN PRN Hypoglycemia Protocol Hydralazine HCl 10 mg 07/16/22 12:52 07/17/22 20:36 Hydralazine Hcl 20 Mg/Ml Vial IV PUSH 10 mg Q6HR PRN Administration Blood Pressure - High Hydrochlorothiazide 12.5 mg 07/16/22 09:00 07/18/22 09:17 Hydrochlorothiazide 12.5 Mg Capsule PO 12.5 mg DAILY KEV Administration Dextrose 1,000 mls @ 100 mls/hr 07/16/22 08:41 Dextrose 5% 1,000 Ml IVPB PRN PRN Hypoglycemia Protocol Insulin Aspart 2 - 5 units 07/16/22 12:00 07/18/22 09:11 Insulin Aspart (*Bkc) 100 Units/Ml SUB-Q Not Given [facility] Protocol Insulin Glargine 13 units 07/16/22 21:00 07/17/22 20:36 Insulin Glargine (*Bkc) 100 Units/Ml 0.15 units/kg (13 units) 13 units SUB-Q Administration HS [facility] Lidocaine 1 patch 07/17/22 09:00 07/18/22 09:17 Lidocaine 5% Patch TRANSDERM Not Given DAILY [facility] Lisinopril 20 mg 07/16/22 09:00 07/18/22 09:17 Lisinopril 20 Mg Tablet PO 20 mg DAILY KEV Administration Ondansetron HCl 4 mg 07/15/22 19:19 07/17/22 04:39 Ondansetron Inj 4 Mg/2 Ml Vial IV PUSH 4 m
[2022-07-18 10:53] LABS: Prothrombin Time 12.9 Seconds (11.1-14.7)
[2022-07-18 12:26] LABS: Glucose Point of Care 206 mg/dl (65-105)
[2022-07-18] MEDS: INSULIN ASPART (*BKC) 100 UNITS/ML SUB-Q (12:43)
[2022-07-18] MEDS: polyethylene glycoL 3350 17 GM POWD.PACK PO (12:43)
[2022-07-18 14:00] VITALS: BP 150/67; PULSE 86; RESP 16; TEMP 36.6; O2SAT 98
--- NOTE | 2022-07-18 16:46 | PM.IMPN ---
Progress Note: A&P Assessment and Plan (1) Abnormal LFTs: Code(s): R79.89 - Other specified abnormal findings of blood chemistry Status: Acute Assessment and Plan: Patient admitted for c/o abdominal pain. LFTs elevated on admission- Tbili 3.4, AST 173, ALT 205, Alk Phos 779. CT of abdomen and pelvis with esophagitis/gastritis, hepatosplenomegaly and abdominal and bilateral inguinal lymphadenopathy. right upper quadrant ultrasound shows hepatomegaly, echogenic liver and 5 mm adherent gallbladder stone. hepatitis panel negative. GI consulted and appreciate recommendations. Trend LFTs-T bili 2.9, AST 162, ALT 199, alk phos 363, mildly increased from yesterday HIDA scan shows delayed clearance and blood pool activity in markedly decreased hepatic excretion of activity that would favor hepatocellular dysfunction in the setting of hepatitis 07/18/22 LFTs - Tbili 3.2, AST 285, ALT 276, Alk Phos 720. GI following. Advance diet as tolerated. If LFTs continue to rise then will likely need liver biopsy. GI deferring at this time and will monitor trend. (2) Nausea and vomiting: Qualifiers: Vomiting type: unspecified Qualified Code(s): R11.2 - Nausea with vomiting, unspecified Code(s): R11.2 - Nausea with vomiting, unspecified Status: Acute Assessment and Plan: Likely secondary to above. Continue supportive care and PRN antiemetics. Improved (3) Hypertension: Qualifiers: Hypertension type: essential hypertension Qualified Code(s): I10 - Essential (primary) hypertension Code(s): I10 - Essential (primary) hypertension Status: Acute Assessment and Plan: Chronic, patient reports she has not been taking her antihypertensive medications in the past year. BP 150/67, HR 86. Resumed HCTZ 12.5 mg daily and lisinopril 20 mg daily while hospitalized. 07/18/22 Increase HCTZ 25 mg daily Monitor vitals. (4) Hyperlipidemia: Qualifiers: Hyperlipidemia type: unspecified Qualified Code(s): E78.5 - Hyperlipidemia, unspecified Code(s): E78.5 - Hyperlipidemia, unspecified Status: Acute Assessment and Plan: Chronic, holding statin due to elevated LFTs (5) UTI (urinary tract infection): Qualifiers: Urinary tract infection type: site unspecified Hematuria presence: without hematuria Qualified Code(s): N39.0 - Urinary tract infection, site not specified Code(s): N39.0 - Urinary tract infection, site not specified Status: Acute Assessment and Plan: UA with negative nitrates and leukocytes, 3+ glucose, 10-15 WBC and many epi cells. Unclear if true UTI or urgency/frequency secondary to glucosuria, however, patient also c/o right flank pain. Continue Rocephin 1 gram IV Q24 hours. Urine culture shows mixed john, since patient had suprapubic tenderness and unclear if left flank pain from UTI versus hepatomegaly. 07/18/22 transitioned to cefdinir 300 mg PO BID x 4 more day. (7 days total) (6) Type 2 diabetes mellitus, uncontrolled: Qualifiers: Glycemic state: with hyperglycemia Qualified Code(s): E11.65 - Type 2 diabetes mellitus with hyperglycemia Status: Acute Assessment and Plan: Chronic, patient reports diabetes diagnosis in 2010 and was taking metformin for 5-6 years, however, she stopped this due to reading about side effects and has not been taking any other medications. Glucose 210 on admission. A1c 11.2% Start accu-checks AC/HS with aspart low-sliding scale meal correction and basal lantus 13 units at HS. She does not want to start insulin outpatient as she does not like needles; she will likely need multiple oral medications for glucose control. Would avoid metformin, glipizide and glimepiride d/t hepatitis. Could consider SGLT-2, however, she is currently being treated for UTI. DPP-4 is possible but may worsen N/V if still present. Would strongly encourage patient to continue insuli
[2022-07-18 17:06] LABS: Glucose Point of Care 181 mg/dl (65-105)
[2022-07-18] MEDS: BISACODYL 10 MG SUPPOSITORY RECTAL (18:17)
[2022-07-18 20:00] VITALS: PULSE 86; RESP 16; O2SAT 98
[2022-07-18 20:22] LABS: Glucose Point of Care 219 mg/dl (65-105)
[2022-07-18] MEDS: INSULIN GLARGINE (*BKC) 100 UNITS/ML 13 UNITS SUB-Q (20:25)
[2022-07-18 22:00] VITALS: BP 133/63; PULSE 83; RESP 16; TEMP 36.6; O2SAT 97
[2022-07-19] MEDS: traMADol HCL (*CRX) 50 MG TABLET PO (03:14)
[2022-07-19 05:41] LABS: Hematocrit 38.2 % (37.0-47.0); Hemoglobin 12.5 g/dL (12.0-15.0); Mean Corpuscular HGB Conc 32.7 g/dl (32-36); Mean Corpuscular Hemoglobin 27.2 pg (26-34); Platelet Count Result 200 k/mm3 (150-375); Red Cell Distribution Width 13.3 % (11.5-14.5); White Blood Count 5.8 K/mm3 (4.5-10.0)
[2022-07-19 05:54] LABS: Alanine Aminotransferase 295 U/L (6-35); Albumin Level 3.1 g/dL (3.5-5.1); Alkaline Phosphatase 828 U/L (38-126); Anion Gap 11 mmol/L (8-16); Aspartate Amino Transferase 273 U/L (14-36); Bilirubin,Total 4.6 mg/dL (0.2-1.3); Blood Urea Nitrogen 5 mg/dL (7-17); Calcium 8.4 mg/dL (8.4-10.2); Carbon Dioxide 27 mmol/L (22-30); Chloride 99 mmol/L (98-107); Estimated CRCL calculation 98 ml/min; Estimated Glomerular Filt Rate > 60; Glucose 181 mg/dL (65-110); Potassium 3.5 mmol/L (3.4-5.0); Sodium 137 mmol/L (137-145)
[2022-07-19 06:00] VITALS: BP 150/74; PULSE 82; RESP 16; TEMP 36.6; O2SAT 98
--- NOTE | 2022-07-19 07:12 | WPDGIPROGNO ---
Progress Note: A&P Assessment and Plan (1) Hepatitis: Code(s): K75.9 - Inflammatory liver disease, unspecified Status: Acute Assessment and Plan: Patient admitted with inflammation of the liver hepatitis evident. Etiology for this hepatitis is unclear. Initial viral serologies is negative. Additional labs are pending. Patient currently tolerating diet nausea vomiting on presentation as resolved. Recommend discharge with follow-up in the GI office in 1 week. Follow up LFTs perhaps twice weekly until that is accomplished. It is possible she may require liver biopsy ultimately if LFTs continue to increase. Hopefully this can be avoided. Repeat viral serologies in a week is advised. continue low-fat diet as tolerated for now. (2) Type 2 diabetes mellitus, uncontrolled: Qualifiers: Glycemic state: with hyperglycemia Qualified Code(s): E11.65 - Type 2 diabetes mellitus with hyperglycemia Status: Acute (3) UTI (urinary tract infection): Qualifiers: Urinary tract infection type: site unspecified Hematuria presence: without hematuria Qualified Code(s): N39.0 - Urinary tract infection, site not specified Code(s): N39.0 - Urinary tract infection, site not specified Status: Acute Subjective Date/time seen: 07/19/22 07:12 Patient alert comfortable this morning. Tolerating diet. She is afebrile. Denies abdominal pain. Review of Systems Review of Systems: Review of systems noncontributory. Exam Narrative: Physical exam reveals patient to be alert. Vital signs stable. HEENT exam reveals mild icterus. Lungs are clear. Heart without murmur. Abdomen obese bowel sounds present soft nontender with no organomegaly. Objective Data Vital Signs Vital Signs: Vital Signs - 24 hr 07/18/22 09:00 07/18/22 14:00 07/18/22 20:00 Temperature 97.9 F Pulse Rate 86 86 Respiratory Rate 16 16 Blood Pressure 150/67 H Pulse Oximetry 98 98 Oxygen Delivery Room Air Room Air 07/18/22 22:00 07/19/22 06:00 Temperature 97.8 F 97.9 F Pulse Rate 83 82 Respiratory Rate 16 16 Blood Pressure 133/63 150/74 H Pulse Oximetry 97 98 Oxygen Delivery Intake/Output Intake/Output: Intake & Output 07/16/22 07/17/22 07/18/22 07/19/22 23:59 23:59 23:59 23:59 Intake Total 3440 2010 Output Total Balance 3440 2009 Meds/Results Medications: Active Medications Generic Name Dose Route Start Last Admin Trade Name Freq PRN Reason Stop Dose Admin Acetaminophen 325 mg 07/16/22 12:55 Acetaminophen 325 Mg Tablet PO Q6H PRN Mild Pain (1-3) or Fever Bisacodyl 10 mg 07/18/22 12:04 07/18/22 18:17 Bisacodyl 10 Mg Suppository RECTAL 10 mg DAILY PRN Administration Constipation Cefdinir 300 mg 07/19/22 09:00 Cefdinir 300 Mg Capsule PO 07/21/22 08:59 Q12HR KEV Dextrose 12.5 gm 07/16/22 08:41 Dextrose 50% 25 Gm/50 Ml Syringe IV PUSH PRN PRN Hypoglycemia Protocol Glucagon 1 mg 07/16/22 08:41 Glucagon For Inj 1 Mg Vial IM PRN PRN Hypoglycemia Protocol Glucose 15 gm 07/16/22 08:41 Glucose Oral Gel 15 Gm Of Glucse In 37.5 Gm Tube PO PRN PRN Hypoglycemia Protocol Hydralazine HCl 10 mg 07/16/22 12:52 07/17/22 20:36 Hydralazine Hcl 20 Mg/Ml Vial IV PUSH 10 mg Q6HR PRN Administration Blood Pressure - High Hydrochlorothiazide 25 mg 07/19/22 09:00 Hydrochlorothiazide 25 Mg Tablet PO DAILY KEV Dextrose 1,000 mls @ 100 mls/hr 07/16/22 08:41 Dextrose 5% 1,000 Ml IVPB PRN PRN Hypoglycemia Protocol Insulin Aspart 2 - 5 units 07/16/22 12:00 07/18/22 17:02 Insulin Aspart (*Bkc) 100 Units/Ml SUB-Q Not Given [facility]ID[facility] Protocol Insulin Glargine 13 units 07/16/22 21:00 07/18/22 20:25 Insulin Glargine (*Bkc) 100 Units/Ml 0.15 units/kg (13 units) 13 units SUB-Q Administration HS [facility] Lidoca
[2022-07-19 08:04] LABS: Glucose Point of Care 182 mg/dl (65-105)
[2022-07-19] MEDS: hydroCHLOROthiazide 25 MG TABLET PO (08:22)
[2022-07-19] MEDS: lisinopriL 20 MG TABLET PO (08:22)
[2022-07-19] MEDS: CEFDINIR 300 MG CAPSULE PO ×2 (08:22→19:50)
[2022-07-19] MEDS: POTASSIUM CHLORIDE 20 MEQ TABLET.ER PO (08:23)
[2022-07-19] MEDS: polyethylene glycoL 3350 17 GM POWD.PACK PO (08:23)
[2022-07-19] MEDS: LIDOCAINE 5% PATCH 1 PATCH TRANSDERM (08:23)
[2022-07-19] MEDS: PANTOPRAZOLE 40 MG TABLET PO (08:23)
[2022-07-19 12:08] LABS: Glucose Point of Care 211 mg/dl (65-105)
[2022-07-19 14:00] VITALS: BP 135/78; PULSE 88; RESP 20; TEMP 36.6; O2SAT 96
--- NOTE | 2022-07-19 16:50 | PM.IMPN ---
Progress Note: A&P Assessment and Plan (1) Abnormal LFTs: Code(s): R79.89 - Other specified abnormal findings of blood chemistry Status: Acute Assessment and Plan: Patient admitted for c/o abdominal pain. LFTs elevated on admission- Tbili 3.4, AST 173, ALT 205, Alk Phos 779. CT of abdomen and pelvis with esophagitis/gastritis, hepatosplenomegaly and abdominal and bilateral inguinal lymphadenopathy. right upper quadrant ultrasound shows hepatomegaly, echogenic liver and 5 mm adherent gallbladder stone. hepatitis panel negative. GI consulted and appreciate recommendations. HIDA scan shows delayed clearance and blood pool activity in markedly decreased hepatic excretion of activity that would favor hepatocellular dysfunction in the setting of hepatitis Tolerating diet Total bili with increase to 4.6 today. Follow up MRCP with no evidence of choledocholithiasis. Reveals diffuse hepatic steatosis. Will continue to monitor LFTs as an outpatient and liver biopsy to be considered if no improvement (2) Nausea and vomiting: Qualifiers: Vomiting type: unspecified Qualified Code(s): R11.2 - Nausea with vomiting, unspecified Code(s): R11.2 - Nausea with vomiting, unspecified Status: Acute Assessment and Plan: Likely secondary to above. Continue supportive care and PRN antiemetics. Resolved (3) Hypertension: Qualifiers: Hypertension type: essential hypertension Qualified Code(s): I10 - Essential (primary) hypertension Code(s): I10 - Essential (primary) hypertension Status: Acute Assessment and Plan: Chronic, patient reports she has not been taking her antihypertensive medications in the past year. Blood pressure is stable. Continue HCTZ at increased dose 25 mg daily Lisinopril 20 mg daily (4) Hyperlipidemia: Qualifiers: Hyperlipidemia type: unspecified Qualified Code(s): E78.5 - Hyperlipidemia, unspecified Code(s): E78.5 - Hyperlipidemia, unspecified Status: Acute Assessment and Plan: Chronic, holding statin due to elevated LFTs (5) UTI (urinary tract infection): Qualifiers: Urinary tract infection type: site unspecified Hematuria presence: without hematuria Qualified Code(s): N39.0 - Urinary tract infection, site not specified Code(s): N39.0 - Urinary tract infection, site not specified Status: Acute Assessment and Plan: UA with negative nitrates and leukocytes, 3+ glucose, 10-15 WBC and many epi cells. Unclear if true UTI or urgency/frequency secondary to glucosuria, however, patient also c/o right flank pain. Continue Rocephin 1 gram IV Q24 hours. Urine culture shows mixed john, since patient had suprapubic tenderness and unclear if left flank pain from UTI versus hepatomegaly. 07/18/22 transitioned to cefdinir 300 mg PO BID x 3 more day. (7 days total) (6) Type 2 diabetes mellitus, uncontrolled: Qualifiers: Glycemic state: with hyperglycemia Qualified Code(s): E11.65 - Type 2 diabetes mellitus with hyperglycemia Status: Acute Assessment and Plan: Chronic, patient reports diabetes diagnosis in 2010 and was taking metformin for 5-6 years, however, she stopped this due to reading about side effects and has not been taking any other medications. Glucose 210 on admission. A1c 11.2% Continue accu-checks AC/HS with aspart low-sliding scale meal correction and basal lantus 13 units HS. She does not want to start insulin outpatient as she does not like needles; she will likely need multiple oral medications for glucose control. Would avoid metformin, glipizide and glimepiride d/t hepatitis. Could consider SGLT-2, however, she is currently being treated for UTI. DPP-4 is possible but may worsen N/V if still present. Would strongly encourage patient to continue insulin until acute disease is resolved. 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
[2022-07-19 17:18] LABS: Glucose Point of Care 191 mg/dl (65-105)
[2022-07-19 17:45] LABS: Lactic Acid Reflex 1.3 mmol/L (0.7-2.0)
[2022-07-19 19:33] LABS: Alkaline Phosphatase 525 U/L (31-125); Macrohepatic Isoenzymes 0 % (<=0)
[2022-07-19 19:49] LABS: Mitochondrial (M2) Ab (IgG) <=20.0 U (<=20.0)
[2022-07-19] MEDS: INSULIN GLARGINE (*BKC) 100 UNITS/ML 13 UNITS SUB-Q (19:52)
[2022-07-19 19:53] LABS: Glucose Point of Care 265 mg/dl (65-105)
[2022-07-19 20:09] VITALS: BP 139/74; PULSE 94; RESP 18; TEMP 36.9; O2SAT 97
[2022-07-20] VITALS (10 sets, daily range): BP systolic 125–144; BP diastolic 68–85; PULSE 80–94; RESP 16–18; TEMP 36.2–36.9; O2SAT 95–100
[2022-07-20 05:17] LABS: Hematocrit 43.1 % (37.0-47.0); Hemoglobin 13.8 g/dL (12.0-15.0); Mean Corpuscular Hemoglobin 27.4 pg (26-34); Mean Corpuscular Volume 85.7 fl (80-100); Platelet Count Result 213 k/mm3 (150-375); Red Blood Count 5.03 M/mm3 (4.2-5.4); Red Cell Distribution Width 13.7 % (11.5-14.5); White Blood Count 6.4 K/mm3 (4.5-10.0)
[2022-07-20 05:29] LABS: Alanine Aminotransferase 354 U/L (6-35); Albumin Level 3.5 g/dL (3.5-5.1); Alkaline Phosphatase 1115 U/L (38-126); Anion Gap 10 mmol/L (8-16); Aspartate Amino Transferase 291 U/L (14-36); Bilirubin,Total 6.1 mg/dL (0.2-1.3); Blood Urea Nitrogen 6 mg/dL (7-17); Calcium 8.7 mg/dL (8.4-10.2); Carbon Dioxide 27 mmol/L (22-30); Chloride 99 mmol/L (98-107); Estimated CRCL calculation 85 ml/min; Estimated Glomerular Filt Rate > 60; Glucose 168 mg/dL (65-110); Sodium 136 mmol/L (137-145)
--- NOTE | 2022-07-20 07:14 | WPDGIPROGNO ---
Progress Note: A&P Assessment and Plan (1) Hepatitis: Code(s): K75.9 - Inflammatory liver disease, unspecified Status: Acute Assessment and Plan: Patient with apparent hepatitis. Etiology unclear. Viral markers negative. Other lab parameters pending. LFTs continue to rise. Plan to proceed with ultrasound-guided liver biopsy today. Continue supportive care. If LFTs continue to increase she may benefit from referral to tertiary care center. (2) Abnormal LFTs: Code(s): R79.89 - Other specified abnormal findings of blood chemistry Status: Acute Assessment and Plan: MRCP performed with no obstruction to the biliary tree. Previous imaging and HIDA scan all consistent with hepatocellular dysfunction consistent with hepatitis of uncertain etiology. It is uncertain whether this is from exposure perhaps, or some nonspecific viral etiology. Subjective Date/time seen: 07/20/22 07:14 Patient continues to feel poorly. Poor appetite occasional nausea. Has vomited less frequently. Review of Systems Review of Systems: Review of systems noncontributory. Exam Narrative: Physical exam reveals patient be alert. Vital signs stable. HEENT exam reveals scleral icterus. Lungs are clear. Heart without murmur. Abdomen is obese. Bowel sounds present soft nontender with no organomegaly palpable. Objective Data Vital Signs Vital Signs: Vital Signs - 24 hr 07/19/22 08:00 07/19/22 14:00 07/19/22 20:09 Temperature 97.9 F 98.4 F Pulse Rate 88 94 Respiratory Rate 20 18 Blood Pressure 135/78 139/74 Pulse Oximetry 96 97 Oxygen Delivery Room Air 07/20/22 06:00 Temperature 98.5 F Pulse Rate 94 Respiratory Rate 18 Blood Pressure 140/71 Pulse Oximetry 97 Oxygen Delivery Intake/Output Intake/Output: Intake & Output 07/17/22 07/18/22 07/19/22 07/20/22 23:59 23:59 23:59 23:59 Intake Total 3440 2009 1100 Balance 3440 2009 1100 Meds/Results Medications: Active Medications Generic Name Dose Route Start Last Admin Trade Name Freq PRN Reason Stop Dose Admin Acetaminophen 325 mg 07/16/22 12:55 Acetaminophen 325 Mg Tablet PO Q6H PRN Mild Pain (1-3) or Fever Bisacodyl 10 mg 07/18/22 12:04 07/18/22 18:17 Bisacodyl 10 Mg Suppository RECTAL 10 mg DAILY PRN Administration Constipation Cefdinir 300 mg 07/19/22 09:00 07/19/22 19:50 Cefdinir 300 Mg Capsule PO 07/21/22 08:59 300 mg Q12HR KEV Administration Dextrose 12.5 gm 07/16/22 08:41 Dextrose 50% 25 Gm/50 Ml Syringe IV PUSH PRN PRN Hypoglycemia Protocol Glucagon 1 mg 07/16/22 08:41 Glucagon For Inj 1 Mg Vial IM PRN PRN Hypoglycemia Protocol Glucose 15 gm 07/16/22 08:41 Glucose Oral Gel 15 Gm Of Glucse In 37.5 Gm Tube PO PRN PRN Hypoglycemia Protocol Hydralazine HCl 10 mg 07/16/22 12:52 07/17/22 20:36 Hydralazine Hcl 20 Mg/Ml Vial IV PUSH 10 mg Q6HR PRN Administration Blood Pressure - High Hydrochlorothiazide 25 mg 07/19/22 09:00 07/19/22 08:22 Hydrochlorothiazide 25 Mg Tablet PO 25 mg DAILY KEV Administration Dextrose 1,000 mls @ 100 mls/hr 07/16/22 08:41 Dextrose 5% 1,000 Ml IVPB PRN PRN Hypoglycemia Protocol Insulin Aspart 2 - 5 units 07/16/22 12:00 07/19/22 17:22 Insulin Aspart (*Bkc) 100 Units/Ml SUB-Q Not Given TIDWM [facility] Protocol Insulin Glargine 13 units 07/16/22 21:00 07/19/22 19:52 Insulin Glargine (*Bkc) 100 Units/Ml 0.15 units/kg (13 units) 13 units SUB-Q Administration HS [facility] Lidocaine 1 patch 07/17/22 09:00 07/19/22 08:23 Lidocaine 5% Patch TRANSDERM 1 patch DAILY KEV Administration Lisinopril 20 mg 07/16/22 09:00 07/19/22 08:22 Lisinopril 20 Mg Tablet PO 20 mg DAILY KEV Administration Ondansetron HCl 4 mg 07/15/22 19:19 07/17/22 04:39 Ondansetron Inj 4 Mg/2 Ml Vial IV PUSH 4 mg
[2022-07-20] MEDS: traMADol HCL (*CRX) 50 MG TABLET PO (07:27)
[2022-07-20 07:42] LABS: Band Neutrophils Percent 3 % (0-6); Lymphocytes Absolute Manual 4.22 K/mm3 (1.1-4.5); Monocytes Absolute Manual 0.76 K/mm3 (0.1-0.90); Monocytes Percent Manual 12 % (3-9); Neutrophils Percent Manual 19 % (46-73); Total Cells Counted 100
[2022-07-20 07:43] LABS: Bilirubin Direct 3.1 mg/dL (0-0.3); Bilirubin Indirect 1.1 mg/dL (0-1.1); Bilirubin,Total 6.1 mg/dL (0.2-1.3)
[2022-07-20 07:44] LABS: Atypical Lymphocytes Present; Platelet Estimate Adequate (Adequate); Schistocytes None Seen (NORMAL)
[2022-07-20 08:01] LABS: Glucose Point of Care 185 mg/dl (65-105)
[2022-07-20] MEDS: PANTOPRAZOLE 40 MG TABLET PO (09:14)
[2022-07-20] MEDS: lisinopriL 20 MG TABLET PO (09:14)
[2022-07-20] MEDS: hydroCHLOROthiazide 25 MG TABLET PO (09:14)
[2022-07-20] MEDS: CEFDINIR 300 MG CAPSULE PO ×2 (09:14→22:10)
[2022-07-20 09:58] LABS: Ceruloplasmin 42 mg/dL (18-53)
--- NOTE | 2022-07-20 12:38 | PC.NURSE ---
pt returned from ultrasound biopsy to liver completed, observed bandaid to right upper quad, CDI, NPO times two hrs then clear liquid diet
[2022-07-20 13:03] LABS: Glucose Point of Care 141 mg/dl (65-105)
--- NOTE | 2022-07-20 14:55 | PM.IMPN ---
Progress Note: A&P Assessment and Plan (1) Abnormal LFTs: Code(s): R79.89 - Other specified abnormal findings of blood chemistry Status: Acute Assessment and Plan: Patient admitted for c/o abdominal pain. LFTs elevated on admission- Tbili 3.4, AST 173, ALT 205, Alk Phos 779. CT of abdomen and pelvis with esophagitis/gastritis, hepatosplenomegaly and abdominal and bilateral inguinal lymphadenopathy. right upper quadrant ultrasound shows hepatomegaly, echogenic liver and 5 mm adherent gallbladder stone. hepatitis panel negative. MRCP with no obstructive etiology. Reveals diffuse hepatic steatosis HIDA scan shows delayed clearance and blood pool activity in markedly decreased hepatic excretion of activity that would favor hepatocellular dysfunction in the setting of hepatitis Appreciate gastroenterology consultation Continued rise in total bili and LFTs today. Liver biopsy to be completed today (2) Nausea and vomiting: Qualifiers: Vomiting type: unspecified Qualified Code(s): R11.2 - Nausea with vomiting, unspecified Code(s): R11.2 - Nausea with vomiting, unspecified Status: Resolved Assessment and Plan: Resolved. Likely secondary to above. Continue supportive care and PRN antiemetics. 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 No history of atrial fibrillation noted. Will monitor on telemetry During admission and plan for 30 day retail account manager following discharge (4) UTI (urinary tract infection): Qualifiers: Urinary tract infection type: site unspecified Hematuria presence: without hematuria Qualified Code(s): N39.0 - Urinary tract infection, site not specified Code(s): N39.0 - Urinary tract infection, site not specified Status: Acute Assessment and Plan: UA with negative nitrates and leukocytes, 3+ glucose, 10-15 WBC and many epi cells. Unclear if true UTI or urgency/frequency secondary to glucosuria, however, patient also had complaints of right flank pain. Received Rocephin 1 gram IV Q24 hours. Urine culture shows mixed john, however since patient had suprapubic tenderness and vague symptoms, decision made to continue treatment Continue PO Cefdinir 300 mg BID for total 7 days of antibiotic therapy (started 07/18 - last day 07/22) (5) Type 2 diabetes mellitus, uncontrolled: Qualifiers: Glycemic state: with hyperglycemia Qualified Code(s): E11.65 - Type 2 diabetes mellitus with hyperglycemia Status: Acute Assessment and Plan: Chronic, patient reports diabetes diagnosis in 2010 and was taking metformin for 5-6 years, however, she stopped this in the past year due to reading about side effects and has not been taking any other medications. Glucose 210 on admission. A1c 11.2% Continue accu-checks AC/HS with aspart low-sliding scale meal correction and basal lantus 13 units HS. Patient is hesitant to start insulin outpatient as she does not like needles but will consider. Would avoid metformin, glipizide and glimepiride d/t hepatitis. Could consider SGLT-2, however, she is currently being treated for UTI. DPP-4 is possible but may worsen N/V if still present. Would strongly encourage patient to continue insulin until acute disease is resolved. (6) Hypertension: Qualifiers: Hypertension type: essential hypertension Qualified Code(s): I10 - Essential (primary) hypertension Code(s): I10 - Essential (primary) hypertension Status: Acute Assessment and Plan: Chronic, patient reports she has not been taking her antihypertensive medications in the past year. Blood pressure is st
[2022-07-20 17:00] LABS: Glucose Point of Care 182 mg/dl (65-105)
[2022-07-20] MEDS: INSULIN GLARGINE (*BKC) 100 UNITS/ML 13 UNITS SUB-Q (22:07)
[2022-07-20 22:10] LABS: Glucose Point of Care 238 mg/dl (65-105)
[2022-07-21] VITALS (9 sets, daily range): BP systolic 114–146; BP diastolic 64–74; PULSE 80–93; RESP 16–20; TEMP 36.1–36.9; O2SAT 97–100; BMI 34.0
[2022-07-21 06:07] LABS: Alanine Aminotransferase 294 U/L (6-35); Albumin Level 3.1 g/dL (3.5-5.1); Alkaline Phosphatase 997 U/L (38-126); Anion Gap 13 mmol/L (8-16); Aspartate Amino Transferase 222 U/L (14-36); Bilirubin,Total 5.6 mg/dL (0.2-1.3); Blood Urea Nitrogen 10 mg/dL (7-17); Calcium 8.6 mg/dL (8.4-10.2); Carbon Dioxide 27 mmol/L (22-30); Chloride 96 mmol/L (98-107); Estimated CRCL calculation 85 ml/min; Estimated Glomerular Filt Rate > 60; Glucose 200 mg/dL (65-110); Potassium 3.9 mmol/L (3.4-5.0); Sodium 136 mmol/L (137-145)
[2022-07-21 06:17] LABS: Hematocrit 41.5 % (37.0-47.0); Hemoglobin 13.2 g/dL (12.0-15.0); Mean Corpuscular HGB Conc 31.8 g/dl (32-36); Mean Corpuscular Hemoglobin 26.9 pg (26-34); Mean Corpuscular Volume 84.5 fl (80-100); Mean Platelet Volume 9.2 fl (7.4-10.4); Platelet Count Result 236 k/mm3 (150-375); Red Blood Count 4.91 M/mm3 (4.2-5.4); Red Cell Distribution Width 13.5 % (11.5-14.5); White Blood Count 5.9 K/mm3 (4.5-10.0)
[2022-07-21 08:08] LABS: Glucose Point of Care 198 mg/dl (65-105)
[2022-07-21] MEDS: PANTOPRAZOLE 40 MG TABLET PO (09:13)
[2022-07-21] MEDS: lisinopriL 20 MG TABLET PO (09:13)
[2022-07-21] MEDS: hydroCHLOROthiazide 25 MG TABLET PO (09:14)
[2022-07-21 12:19] LABS: Glucose Point of Care 260 mg/dl (65-105)
[2022-07-21] MEDS: INSULIN ASPART (*BKC) 100 UNITS/ML SUB-Q ×2 (12:23→17:31)
--- NOTE | 2022-07-21 13:37 | WPDGIPROGNO ---
Progress Note: A&P Assessment and Plan (1) Hepatitis: Code(s): K75.9 - Inflammatory liver disease, unspecified Status: Acute Assessment and Plan: Patient with underlying hepatitis. Accounts for her nausea vomit he on presentation. Elevated LFTs are on this basis. Viral serology negative. Additional labs are pending. Liver biopsy performed today. At the present time supportive care is advised. If she is able to tolerate diet then outpatient management can be obtained. Should she continue to deteriorate then we will need her to follow-up with hepatology service at tertiary [facility]. I will ask Dr. Baron to follow her over the weekend as I will be off service. (2) Abnormal LFTs: Code(s): R79.89 - Other specified abnormal findings of blood chemistry Status: Acute (3) Type 2 diabetes mellitus, uncontrolled: Qualifiers: Glycemic state: with hyperglycemia Qualified Code(s): E11.65 - Type 2 diabetes mellitus with hyperglycemia Status: Acute Subjective Date/time seen: 07/21/22 13:37 Patient alert this morning sitting the edge of bed playing [employer]. She states she has more comfortable this morning. Had liver biopsy yesterday. Had rather vague right-sided abdominal pain she attributes to her menses this is improved. Review of Systems Review of Systems: Review of systems noncontributory. Exam Narrative: physical exam reveals patient be alert. Vital signs stable. She is alert, . Afebrile. Some scleral icterus evident. HEENT exam otherwise unremarkable. Lungs are clear. Heart without murmur. Abdomen is obese soft , nontender, no obvious organomegaly. Objective Data Vital Signs Vital Signs: Vital Signs - 24 hr 07/20/22 14:00 07/20/22 16:00 07/20/22 18:55 Temperature 98.5 F 97.5 F L Pulse Rate 86 91 85 Respiratory Rate 16 18 Blood Pressure 125/70 143/81 H Pulse Oximetry 96 100 Oxygen Delivery 07/20/22 20:53 07/20/22 22:20 07/20/22 22:20 Temperature 97.1 F L Pulse Rate 88 80 Respiratory Rate 16 Blood Pressure 127/68 Pulse Oximetry 95 Oxygen Delivery Room Air 07/21/22 00:00 07/21/22 04:14 07/21/22 04:00 Temperature 97 F L Pulse Rate 80 93 83 Respiratory Rate 20 Blood Pressure 146/74 H Pulse Oximetry 100 Oxygen Delivery 07/21/22 08:00 07/21/22 08:00 07/21/22 12:00 Temperature Pulse Rate 82 90 Respiratory Rate Blood Pressure Pulse Oximetry Oxygen Delivery Room Air Intake/Output Intake/Output: Intake & Output 07/18/22 07/19/22 07/20/22 07/21/22 23:59 23:59 23:59 23:59 Intake Total 2009 6214 284 9480 Output Total 3 Balance 2009 7654 318 9988 Meds/Results Medications: Active Medications Generic Name Dose Route Start Last Admin Trade Name Freq PRN Reason Stop Dose Admin Acetaminophen 325 mg 07/16/22 12:55 Acetaminophen 325 Mg Tablet PO Q6H PRN Mild Pain (1-3) or Fever Bisacodyl 10 mg 07/18/22 12:04 07/18/22 18:17 Bisacodyl 10 Mg Suppository RECTAL 10 mg DAILY PRN Administration Constipation Dextrose 12.5 gm 07/16/22 08:41 Dextrose 50% 25 Gm/50 Ml Syringe IV PUSH PRN PRN Hypoglycemia Protocol Glucagon 1 mg 07/16/22 08:41 Glucagon For Inj 1 Mg Vial IM PRN PRN Hypoglycemia Protocol Glucose 15 gm 07/16/22 08:41 Glucose Oral Gel 15 Gm Of Glucse In 37.5 Gm Tube PO PRN PRN Hypoglycemia Protocol Hydralazine HCl 10 mg 07/16/22 12:52 07/17/22 20:36 Hydralazine Hcl 20 Mg/Ml Vial IV PUSH 10 mg Q6HR PRN Administration Blood Pressure - High Hydrochlorothiazide 25 mg 07/19/22 09:00 07/21/22 09:14 Hydrochlorothiazide 25 Mg Tablet PO 25 mg DAILY KEV Administration Dextrose 1,000 mls @ 100 mls/hr 07/16/22 08:41 Dextrose 5% 1,000 Ml IVPB PRN PRN Hypoglycemia Protocol Insulin Aspart 3 - 6 units 07/21/22 12:00 07/21/22 12:23
--- NOTE | 2022-07-21 14:51 | PM.IMPN ---
Progress Note: A&P Assessment and Plan (1) Abnormal LFTs: Code(s): R79.89 - Other specified abnormal findings of blood chemistry Status: Acute Assessment and Plan: Patient admitted for c/o abdominal pain. LFTs elevated on admission- Tbili 3.4, AST 173, ALT 205, Alk Phos 779. CT of abdomen and pelvis with esophagitis/gastritis, hepatosplenomegaly and abdominal and bilateral inguinal lymphadenopathy. right upper quadrant ultrasound shows hepatomegaly, echogenic liver and 5 mm adherent gallbladder stone. hepatitis panel negative. MRCP with no obstructive etiology. Reveals diffuse hepatic steatosis HIDA scan shows delayed clearance and blood pool activity in markedly decreased hepatic excretion of activity that would favor hepatocellular dysfunction in the setting of hepatitis underwent liver biopsy on 07/20/2022. Pathology pending Appreciate gastroenterology consultation Very slight improvement in LFTs today. Continue to trend (2) Nausea and vomiting: Qualifiers: Vomiting type: unspecified Qualified Code(s): R11.2 - Nausea with vomiting, unspecified Code(s): R11.2 - Nausea with vomiting, unspecified Status: Resolved Assessment and Plan: Resolved. Likely secondary to above. Continue supportive care and PRN antiemetics. 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 No history of atrial fibrillation noted. Continue to monitor on telemetry during admission and plan for 30 day sky diver following discharge (4) UTI (urinary tract infection): Qualifiers: Urinary tract infection type: site unspecified Hematuria presence: without hematuria Qualified Code(s): N39.0 - Urinary tract infection, site not specified Code(s): N39.0 - Urinary tract infection, site not specified Status: Acute Assessment and Plan: UA with negative nitrates and leukocytes, 3+ glucose, 10-15 WBC and many epi cells. Unclear if true UTI or urgency/frequency secondary to glucosuria, however, patient also had complaints of right flank pain. Initially received Rocephin 1 gram IV Q24 hours. Urine culture shows mixed john, however since patient had suprapubic tenderness and vague symptoms, decision made to continue treatment Continue PO Cefdinir 300 mg BID for total 7 days of antibiotic therapy (started 07/18 - last day 07/22) (5) Type 2 diabetes mellitus, uncontrolled: Qualifiers: Glycemic state: with hyperglycemia Qualified Code(s): E11.65 - Type 2 diabetes mellitus with hyperglycemia Status: Acute Assessment and Plan: Chronic, patient reports diabetes diagnosis in 2010 and was taking metformin for 5-6 years, however, she stopped this in the past year due to reading about side effects and has not been taking any other medications. A1c 11.2% Continue accu-checks AC/HS with aspart moderate-sliding scale meal correction and basal lantus, increased to 15 units HS as fasting glucose 200 today Patient is hesitant to start insulin outpatient as she does not like needles but will consider. Would avoid metformin, glipizide and glimepiride d/t hepatitis. Could consider SGLT-2, however, she is currently being treated for UTI. DPP-4 is possible but may worsen N/V if still present. Would strongly encourage patient to continue insulin until acute disease is resolved. Consult to natural resources extension educator. Appreciate recommendations (6) Hypertension: Qualifiers: Hypertension type: essential hypertension Qualified Code(s): I10 - Essential (primary) hypertension Code(s): I10 - Essential (primary) hypertension Status: Acute Assessment and P
[2022-07-21 17:08] LABS: Glucose Point of Care 221 mg/dl (65-105)
[2022-07-21] MEDS: INSULIN GLARGINE (*BKC) 100 UNITS/ML 15 UNITS SUB-Q (20:40)
[2022-07-21 21:50] LABS: Glucose Point of Care 235 mg/dl (65-105)
[2022-07-22] VITALS (7 sets, daily range): BP systolic 125–141; BP diastolic 70–77; PULSE 85–101; RESP 17–18; TEMP 36.6–37.1; O2SAT 97–99
[2022-07-22 06:05] LABS: Hematocrit 41.9 % (37.0-47.0); Hemoglobin 13.3 g/dL (12.0-15.0); Mean Corpuscular HGB Conc 31.7 g/dl (32-36); Mean Corpuscular Hemoglobin 27.6 pg (26-34); Mean Corpuscular Volume 86.9 fl (80-100); Mean Platelet Volume 9.4 fl (7.4-10.4); Platelet Count Result 205 k/mm3 (150-375); Red Blood Count 4.82 M/mm3 (4.2-5.4); Red Cell Distribution Width 13.7 % (11.5-14.5); White Blood Count 4.8 K/mm3 (4.5-10.0)
[2022-07-22 06:21] LABS: Alanine Aminotransferase 273 U/L (6-35); Albumin Level 3.2 g/dL (3.5-5.1); Alkaline Phosphatase 1195 U/L (38-126); Anion Gap 10 mmol/L (8-16); Aspartate Amino Transferase 197 U/L (14-36); Bilirubin,Total 5.5 mg/dL (0.2-1.3); Blood Urea Nitrogen 13 mg/dL (7-17); Calcium 8.8 mg/dL (8.4-10.2); Carbon Dioxide 27 mmol/L (22-30); Chloride 96 mmol/L (98-107); Estimated CRCL calculation 75 ml/min; Estimated Glomerular Filt Rate > 60; Glucose 227 mg/dL (65-110); Potassium 3.8 mmol/L (3.4-5.0); Sodium 133 mmol/L (137-145)
[2022-07-22 09:11] LABS: Glucose Point of Care 261 mg/dl (65-105)
[2022-07-22] MEDS: lisinopriL 20 MG TABLET PO (09:20)
[2022-07-22] MEDS: PANTOPRAZOLE 40 MG TABLET PO (09:20)
[2022-07-22] MEDS: hydroCHLOROthiazide 25 MG TABLET PO (09:20)
[2022-07-22] MEDS: INSULIN ASPART (*BKC) 100 UNITS/ML SUB-Q ×2 (09:21→12:36)
[2022-07-22 12:23] LABS: Glucose Point of Care 284 mg/dl (65-105)
--- NOTE | 2022-07-22 14:16 | WPDGIPROGNO ---
Progress Note: A&P Assessment and Plan (1) Hepatitis: Code(s): K75.9 - Inflammatory liver disease, unspecified Status: Acute Assessment and Plan: work up in progress, patient denies any new medications, alcohol use or sick exposure s/p liver biopsy and path pending elevated liver enzymes mostly unchanged she is doing well and has good appetite, had normal inr and no encephalopathy (2) Type 2 diabetes mellitus, uncontrolled: Qualifiers: Glycemic state: with hyperglycemia Qualified Code(s): E11.65 - Type 2 diabetes mellitus with hyperglycemia Status: Acute (3) Abnormal LFTs: Code(s): R79.89 - Other specified abnormal findings of blood chemistry Status: Acute Assessment and Plan: repeat as outpatient next week (4) Splenic infarct: Code(s): D73.5 - Infarction of spleen Status: Acute Subjective Date/time seen: 07/22/22 14:16 Interval history: feeling ok, no discomfort, good appetite and had BM today Review of Systems Review of Systems: All systems reviewed & are unremarkable except as noted in HPI and below Exam Narrative: General: well-nourished, well-appearing 46-year-old female, supine in bed, comfortable Neuro: awake, alert and oriented x4, speech clear, no focal neuro deficits noted HEENMT: normocephalic, atraumatic, EOMI, sclerae anicteric Respiratory: clear to auscultation bilaterally, nonlabored breathing Cardio: regular rate, regular rhythm with S1-S2 Abdomen: nondistended, normoactive bowel sounds, soft, nontender to palpation Extremities: no edema, erythema, or tenderness to palpation Skin: Mild jaundice in periorbital region, no rashes or lesions, warm and dry Psych: appropriate mood and affect, judgment and insight intact Objective Data Vital Signs Vital Signs: Vital Signs - 24 hr 07/21/22 16:00 07/21/22 20:36 07/21/22 20:40 Temperature 98.4 F Pulse Rate 88 91 Respiratory Rate 16 Blood Pressure 144/71 H Pulse Oximetry 97 Oxygen Delivery Room Air 07/21/22 20:00 07/22/22 00:00 07/22/22 04:30 Temperature Pulse Rate 89 99 88 Respiratory Rate Blood Pressure Pulse Oximetry Oxygen Delivery 07/22/22 05:19 07/22/22 09:25 07/22/22 08:00 Temperature 98.7 F Pulse Rate 95 85 92 Respiratory Rate 18 17 Blood Pressure 125/70 141/74 H Pulse Oximetry 97 97 Oxygen Delivery 07/22/22 09:30 07/22/22 12:00 Temperature Pulse Rate 94 Respiratory Rate Blood Pressure Pulse Oximetry Oxygen Delivery Room Air Intake/Output Intake/Output: Intake & Output 07/19/22 07/20/22 07/21/22 07/22/22 23:59 23:59 23:59 23:59 Intake Total 5891 437 2781 2220 Output Total 11 Balance 7764 412 7958 2220 Meds/Results Medications: Active Medications Generic Name Dose Route Start Last Admin Trade Name Freq PRN Reason Stop Dose Admin Acetaminophen 325 mg 07/16/22 12:55 Acetaminophen 325 Mg Tablet PO Q6H PRN Mild Pain (1-3) or Fever Bisacodyl 10 mg 07/18/22 12:04 07/18/22 18:17 Bisacodyl 10 Mg Suppository RECTAL 10 mg DAILY PRN Administration Constipation Dextrose 12.5 gm 07/16/22 08:41 Dextrose 50% 25 Gm/50 Ml Syringe IV PUSH PRN PRN Hypoglycemia Protocol Glucagon 1 mg 07/16/22 08:41 Glucagon For Inj 1 Mg Vial IM PRN PRN Hypoglycemia Protocol Glucose 15 gm 07/16/22 08:41 Glucose Oral Gel 15 Gm Of Glucse In 37.5 Gm Tube PO PRN PRN Hypoglycemia Protocol Hydralazine HCl 10 mg 07/16/22 12:52 07/17/22 20:36 Hydralazine Hcl 20 Mg/Ml Vial IV PUSH 10 mg Q6HR PRN Administration Blood Pressure - High Hydrochlorothiazide 25 mg 07/19/22 09:00 07/22/22 09:20 Hydrochlorothiazide 25 Mg Tablet PO 25 mg DAILY KEV Administration Dextrose 1,000 mls @ 100 mls/hr 07/16/22 08:41 Dextrose 5% 1,000 Ml IVPB PRN PRN Hypoglycemia Protocol Insulin Aspart
--- NOTE | 2022-07-22 14:29 | PM.DS ---
DS: Admitting Diagnosis Discharge Date 07/22/2022 Admitting Diagnosis transaminitis DS: Discharge Diagnosis Discharge Diagnosis (1) Abnormal LFTs: Code(s): R79.89 - Other specified abnormal findings of blood chemistry Status: Acute Assessment and Plan: Patient admitted for c/o abdominal pain. LFTs elevated on admission- Tbili 3.4, AST 173, ALT 205, Alk Phos 779. CT of abdomen and pelvis with esophagitis/gastritis, hepatosplenomegaly and abdominal and bilateral inguinal lymphadenopathy. right upper quadrant ultrasound showed hepatomegaly, echogenic liver and 5 mm adherent gallbladder stone. hepatitis panel negative. MRCP with no obstructive etiology. Reveals diffuse hepatic steatosis HIDA scan showed delayed clearance and blood pool activity in markedly decreased hepatic excretion of activity that would favor hepatocellular dysfunction in the setting of hepatitis She was seen in consultation by Gastroenterology during admission underwent liver biopsy on 07/20/2022 with pathology pending at time of discharge. She will follow-up with GI to review these results Appreciate gastroenterology consultation LFTs with slow downward trend. Continue to monitor. Repeat labs as an outpatient in 1 week with results to GI (2) Nausea and vomiting: Qualifiers: Vomiting type: unspecified Qualified Code(s): R11.2 - Nausea with vomiting, unspecified Code(s): R11.2 - Nausea with vomiting, unspecified Status: Resolved Assessment and Plan: Resolved. Likely secondary to above. 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 No history of atrial fibrillation noted. Patient monitored on telemetry during admission and maintain normal sinus rhythm. Will plan for 30 day monitoring coordinator as an outpatient and patient will follow-up with PCP (4) UTI (urinary tract infection): Qualifiers: Urinary tract infection type: site unspecified Hematuria presence: without hematuria Qualified Code(s): N39.0 - Urinary tract infection, site not specified Code(s): N39.0 - Urinary tract infection, site not specified Status: Acute Assessment and Plan: UA with negative nitrates and leukocytes, 3+ glucose, 10-15 WBC and many epi cells. Unclear if true UTI or urgency/frequency secondary to glucosuria, however, patient also had complaints of right flank pain. Urine culture shows mixed john, however since patient had suprapubic tenderness and vague symptoms, decision made to continue treatment Received IV ceftriaxone and was transitioned to PO Cefdinir 300 mg BID for total 7 days of antibiotic therapy which she completed on 07/22 (5) Type 2 diabetes mellitus, uncontrolled: Qualifiers: Glycemic state: with hyperglycemia Qualified Code(s): E11.65 - Type 2 diabetes mellitus with hyperglycemia Status: Chronic Assessment and Plan: Chronic, patient reports diabetes diagnosis in 2010 and was taking metformin for 5-6 years, however, she stopped this in the past year due to reading about side effects and has not been taking any other medications. A1c 11.2% Manage during admission with Accu-Cheks, sliding scale insulin, and basal Lantus 15 units q.h.s. Given hepatitis, metformin, glipizide, glimepiride not ideal options for treatment Patient seen by clinical nurse educator during admission Patient agreeable to continuing Lantus as an outpatient, 15 units q.h.s. Instructed to record blood sugars ACHS and reviewed results with PCP in 1 week She was provided information for endocrinology by CT and will benefit from outpatient follow-up (6) Hypertension: Qualifiers:
== END 2022-07-22 15:54 | disposition home or self-care (01) | DRG 442 ==
LOC: ANHED 19:08 → ANH3MED 20:27
PROVIDERS: Internal Medicine Gastroenterology; Nurse Practitioner Family; Physician Assistant; Admitting Provider Internal Medicine; Emergency Provider Emergency Medicine; PCP Family Medicine; Visit Provider Family Medicine
DX: K75.9 Inflammatory liver disease, unspecified (principal); N39.0 Urinary tract infection, site not specified; D73.5 Infarction of spleen; E11.65 Type 2 diabetes mellitus with hyperglycemia; I10 Essential (primary) hypertension; E78.5 Hyperlipidemia, unspecified; E66.9 Obesity, unspecified; Z20.822 Contact with and (suspected) exposure to COVID-19; Z86.73 Personal history of transient ischemic attack (TIA), and cerebral infarction without residual deficits; Z79.82 Long term (current) use of aspirin
CPT/HCPCS: 36415; 47000; 74177; 74183; 76376; 76705; 76942; 78226; 80053; 80074; 80076; 81001; 81025; 82104; 82247; 82248; 82390; 82728; 82948; 83036; 83520; 83605; 83690; 84075; 84080; 85025; 85027; 85610; 86038; 87086; 87088; 87804; 88307; 88312; 88313; 96361; 96365; 96366; 96374; 96375; 96376; 99285; A9270; A9537; A9577; C9113; G0378; J0360; J0696; J1815; J1885; J2405; J2550; J7030; Q9967; U0003; U0005

== ENCOUNTER 2022-08-07 12:32 | Outpatient (CLI) | payer OTHER, SELFPAY ==
[2022-08-07 13:39] LABS: Alanine Aminotransferase 291 U/L (6-35); Alkaline Phosphatase 378 U/L (38-126); Aspartate Amino Transferase 162 U/L (14-36); Bilirubin,Total 1.1 mg/dL (0.2-1.3)
== END 2022-08-07 12:33 | disposition home or self-care (01) ==
LOC: ANHWCLAB 12:34
PROVIDERS: PCP Family Medicine; Visit Provider Physician Assistant
DX: K75.9 Inflammatory liver disease, unspecified (principal)
CPT/HCPCS: 36415; 80076

== ENCOUNTER 2022-08-14 11:03 | Outpatient (CLI) | payer OTHER, SELFPAY ==
--- NOTE | ~2022-08-14 | US_ITS ---
US thyroid INDICATION: Iodine deficiency. Enlarged thyroid gland. TECHNIQUE: Real-time sonographic images of the thyroid gland were obtained. COMPARISON: No prior studies for comparison. FINDINGS: The right thyroid lobe measures 6.6 x 2.3 x 2.6 cm. The left thyroid lobe measures 8.5 x 2 .5 x 3.3 cm. Gland is diffusely heterogeneous. In the lower pole of the right thyroid gland there is a solid hypoe choic mass which is wider than tall, smoothly marginated without internal echogenic foci measuring 2. 4 x 1.8 x 1.7 cm, TR 4, meeting sonographic criteria for biopsy. In the left lobe there is a complex solid hypoechoic mass which is wider than tall, ill-defined margins and internal punctate echogenic f oci, TR 5, meeting sonographic criteria for biopsy. IMPRESSION: 1. Diffusely enlarged thyroid gland with dominant masses in both lobes.. Recommend bilateral ultraso und-guided biopsy. Reviewed, dictated and finalized at location A. P OPERATOR IMPRESSION: 1. Diffusely enlarged thyroid gland with dominant masses in both lobes.. Recom mend bilateral ultrasound-guided biopsy.
[2022-08-14 13:03] LABS: Creatinine Urine 68.2 mg/dL
[2022-08-14 13:07] LABS: MALB Creatinine Ratio 16.3 mg/g (0-30); Microalbumin Urine Random 11.1 mg/L (0-16.7)
[2022-08-14 13:21] LABS: Free T4 Free Thyroxine 2.04 ng/mL (0.78-2.19); Vitamin D 25 Hydroxy 30.7 ng/mL
[2022-08-14 13:30] LABS: Thyroid Stimulating Hormone < 0.015 uIU/mL (0.465-4.680)
[2022-08-18 05:51] LABS: Triiodothyronine T3 Free 4.2 pg/mL (2.3-4.2)
== END 2022-08-14 11:04 | disposition home or self-care (01) ==
PROVIDERS: Nurse Practitioner Family; PCP Family Medicine; Visit Provider Family Medicine
DX: E01.0 Iodine-deficiency related diffuse (endemic) goiter (principal); E05.90 Thyrotoxicosis, unspecified without thyrotoxic crisis or storm; I10 Essential (primary) hypertension; R79.89 Other specified abnormal findings of blood chemistry; E11.9 Type 2 diabetes mellitus without complications
CPT/HCPCS: 36415; 76536; 82043; 82306; 84439; 84443; 84481

== ENCOUNTER 2022-08-31 10:20 | Outpatient (CLI) | payer OTHER, SELFPAY ==
--- NOTE | ~2022-08-31 | US_ITS ---
EXAMINATION: US FNA w image guidance DATE: 08/31/2022 11:17 INDICATION: Bilateral thyroid nodules. TECHNIQUE: The procedure and its benefits and risks were discussed with the patient. Risks specifically discusse d included bleeding. The patient verbalized understanding of the risks and agreed to proceed. The nec k was prepped and draped in the usual sterile manner. 1% lidocaine was used for local anesthesia. 6 passes were made with a 25G needle into the lesion in right thyroid lobe under ultrasound guidance. 6 passes were made with a 25-gauge needle into the lesion in left thyroid lobe under ultrasound toy nce. There were no immediate complications. FINDINGS: Grayscale ultrasound images demonstrate needles advanced into a 2.5 cm hypoechoic nodule in inferior right thyroid lobe for biopsy. Ultrasound images demonstrate needles advanced into a 4.3 cm nodule in inferior left thyroid lobe. IMPRESSION: 1. Ultrasound-guided fine needle aspiration of a right thyroid nodule. 2. Ultrasound-guided fine-needle aspiration of a left thyroid nodule. Reviewed, dictated and finalized at location A. [employer]
--- NOTE | ~2022-08-31 | US_ITS ---
EXAMINATION: US FNA additional DATE: 08/31/2022 11:17 INDICATION: Bilateral thyroid nodules. TECHNIQUE: The procedure and its benefits and risks were discussed with the patient. Risks specifically discusse d included bleeding. The patient verbalized understanding of the risks and agreed to proceed. The nec k was prepped and draped in the usual sterile manner. 1% lidocaine was used for local anesthesia. 6 p asses were made with a 25G needle into the lesion in right thyroid lobe under ultrasound guidance. 6 passes were made with a 25-gauge needle into the lesion in left thyroid lobe under ultrasound toy nce. There were no immediate complications. FINDINGS: Grayscale ultrasound images demonstrate needles advanced into a 2.5 cm hypoechoic nodule in inferior right thyroid lobe for biopsy. Ultrasound images demonstrate needles advanced into a 4.3 cm nodule in inferior left thyroid lobe. IMPRESSION: 1. Ultrasound-guided fine needle aspiration of a right thyroid nodule. 2. Ultrasound-guided fine-needle aspiration of a left thyroid nodule. Reviewed, dictated and finalized at location A. [employer]
--- NOTE | ~2022-08-31 | NM_ITS ---
Thyroid uptake and scan: History: Thyroid nodules. Radiopharmaceutical: 0.491 mCi of I-123 was administered. Technique: Imaging was informed of the thyroid gland in the anterior, TEODORO, and FREDERICK planes. Findings: There is a hot nodule, with increased uptake, at the right lower lobe. There is probable ph otopenic defect at the left lower pole. There is lower level uptake in the remainder of the gland (as compared to the hot nodule). The thyroid uptake is 37.7% (normal 10-30%), with the right lobe measuring 25.7% uptake and the left 12.6%. Impression: Probable photopenic/cold nodule the left lower pole, which correlates with a left lower pole nodule w hich was recently biopsied. Correlate with biopsy results. Hot nodule at the right lower pole, with elevated uptake in relative suppression of the remainder of the gland. This is compatible with a toxic autonomous nodule. Mildly elevated thyroid uptake overall, consistent with hyperthyroidism. Reviewed, dictated and finalized at location . [facility] Impression: Probable photopenic/cold nodule the left lower pole, which correlates with a le ft lower pole nodule which was recently biopsied. Correlate with biopsy results . Hot nodule at the right lower pole, with elevated uptake in relative suppressio n of the remainder of the gland. This is compatible with a toxic autonomous nod ule. Mildly elevated thyroid uptake overall, consistent with hyperthyroidism.
== END 2022-08-31 10:21 | disposition home or self-care (01) ==
LOC: ANHIMG 10:23
PROVIDERS: PCP Family Medicine; Visit Provider Nurse Practitioner Family
DX: E01.0 Iodine-deficiency related diffuse (endemic) goiter (principal); E05.90 Thyrotoxicosis, unspecified without thyrotoxic crisis or storm
CPT/HCPCS: 10005; 10006; 78014; 88173; 88305; 88342; A9516

== ENCOUNTER 2022-10-05 15:30 | Outpatient (RCR) | payer OTHER, SELFPAY | END 2022-10-05 17:57 | disposition home or self-care (01) | LOC: ANHDMC 15:30 | PROVIDERS: PCP Family Medicine; Visit Provider Family Medicine | DX: E11.65 Type 2 diabetes mellitus with hyperglycemia (principal); Z71.89 Other specified counseling | CPT/HCPCS: G0108 ==

== ENCOUNTER 2022-10-13 13:53 | Outpatient (CLI) | payer OTHER, SELFPAY ==
--- NOTE | ~2022-10-13 | US_ITS ---
EXAMINATION: US art doppler w press LE BI DATE: 10/13/2022 15:25 INDICATION: Peripheral vascular disease, unspecified. TECHNIQUE: Segmental pressures and plethysmographic and Doppler waveforms of the brachial and lower e xtremity arteries were obtained. COMPARISON: CT abdomen and pelvis 07/15/2022 FINDINGS: Right and left brachial artery pressures of 143 mm Hg and 147 mm Hg, respectively, are concordant (no rmal difference <= 30 mmHg). The right thigh, below knee, and ankle pressures could not be measured due to inability to cuff occlu de the arteries. The right ankle-brachial index (AGGIE) could not be measured. The right great toe-brac hial index (TBI) is 0.39 (normal >= 0.65). Arterial Doppler waveforms are biphasic from common femora l artery to the ankle. The left thigh pressures could not be measured due to inability to cuff occlude the arteries. The bel ow-knee pressure index is 1.12. Ankle pressures could not be measured due to inability to cuff occlud e the arteries. The left AGGIE could not be measured. There is a bandage on the great toe preventing me asurement of the left TBI. Arterial Doppler waveforms are biphasic from common femoral artery to the ankle. IMPRESSION: 1. Decreased right TBI, consistent with arterial occlusive disease. 2. ABIs and left TBI could not be measured. Reviewed, dictated and finalized at location A. [employer]
== END 2022-10-13 13:54 | disposition home or self-care (01) ==
PROVIDERS: PCP Family Medicine; Visit Provider Podiatrist Foot & Ankle Surgery
DX: I73.9 Peripheral vascular disease, unspecified (principal)
CPT/HCPCS: 93923

== ENCOUNTER 2024-03-14 01:44 | Day surgery (SDC) | payer OTHER, SELFPAY ==
[2024-03-10 08:25] VITALS: BMI 37.2
--- NOTE | 2024-03-12 13:57 | PC.NURSE ---
Pt called early this am for prep instructions requesting them to be e-mailed and a call back. instructions e-mailed to the e-mail on file. I tried to call the patient but message received that call could not go through at that time.
[2024-03-14 07:21] VITALS: BP 155/84; PULSE 96; RESP 17; TEMP 36; O2SAT 97; BMI 36.3
--- NOTE | 2024-03-14 07:23 | SUR.PREOP ---
Reported to Dr. Grady patient had already urinated before she came back to prep op and is unable to urinate again for a bedside upreg. Pt stated that has had a vasectomy and she just got done with her cycle last week. Per Dr. Grady no need to do a upreg.
--- NOTE | 2024-03-14 07:25 | SUR.PREOP ---
Reported to Dr. Grady that patient had ate steak and potatoes around 1300 03/13/24.
[2024-03-14] MEDS: LACTATED RINGERS 1,000 ML 150 ML IV CONT (07:31)
--- NOTE | 2024-03-14 07:31 | WPDANESEPPF ---
Anes - Initial Pre Proc Eval Procedure: Operation Date: 03/14/24 08:30 Proposed Procedures p Colonoscopy - Jef Lyle MD Date/Time: 03/14/24 07:31 Surgeon: Jef Lyle MD Pre Op Diagnosis: other fecal abnormalities Patient Data Age: 48 Gender: F Height: 1.57 m Weight: 90.3 kg Last Vital Signs Temp 96.8 F L 03/14/24 07:21 Pulse 96 03/14/24 07:21 Resp 17 03/14/24 07:21 BP 155/84 H 03/14/24 07:21 Pulse Ox 97 03/14/24 07:21 O2 Del Method Room Air 03/14/24 07:21 Allergies Allergy/AdvReac Type Severity Reaction Status Date / Time adhesive tape Allergy Severe colon to Verified 03/14/24 07:19 skin peanut AdvReac Severe Gastrointestinal Verified 03/14/24 07:19 Upset Home Medications Medication Instructions Recorded Confirmed Type lancing device (lancing device #100 ea 07/28/22 03/14/24 Rx with lancets) aspirin 325 mg tablet 325 mg PO DAILY 02/15/23 03/14/24 History glucagon 3 mg/actuation nasal spray 3 mg intranasal ONCE #2 ea 08/15/23 03/14/24 Rx insulin glargine 100 unit/mL (3 15 unit (0.15 mL) subcut QPM 90 08/15/23 03/14/24 Rx mL) subcutaneous pen (Lantus days #15 mL Solostar U-100 Insulin) insulin lispro 100 unit/mL 60 unit (0.6 mL) subcut DAILY 90 08/15/23 03/14/24 Rx subcutaneous pen (Humalog KwikPen days #60 mL (U-100) Insulin) blood-glucose sensor (FreeStyle #6 ea 09/26/23 03/14/24 Rx Tiffanie 3 Sensor device) lisinopril 20 mg tablet 20 mg PO DAILY #30 tabs 01/29/24 03/14/24 Rx pen needle, diabetic 32 gauge x #400 ea 02/05/24 03/14/24 Rx 5/32 (Comfort EZ Pen Dazey) methimazole 5 mg tablet 5 mg PO DAILY #90 tabs 02/20/24 03/14/24 Rx tirzepatide 2.5 mg/0.5 mL 2.5 mg (0.5 mL) subcut WEEKLY 4 02/20/24 03/14/24 Rx subcutaneous pen injector weeks #2 mL (Rahunmumtazro) atorvastatin 40 mg tablet 40 mg PO DAILY 03/10/24 03/14/24 History Patient hx anesthesia problems: none Family hx anesthesia problems: none Results Review: All pre-operative results and documents have been reviewed as part of the pre-operative evaluation. [facility] Past Medical History Medical History Diabetic foot ulcer associated with diabetes mellitus due to underlying condition EBV infection Gallstones Hepatitis History of CVA (cerebrovascular accident) Hyperlipidemia Hypertension Hyperthyroidism Seasonal allergic rhinitis Splenic infarct Thyroid nodule greater than or equal to 1 cm in diameter incidentally noted on imaging study Thyromegaly Type 2 diabetes mellitus without complication Surgical History Surgical History H/O section Family History Family History Father Diabetes mellitus Hypertension Depression Mother Hypertension Grandparent Hypertension Cerebrovascular accident Son Asthma Social History Social History Smoking status: Never smoker Second hand tobacco smoke exposure: Yes Alcohol intake: former Substance use: never Substance use type: does not use Lack of Transportation: No Lack of Food: Never True Current Housing: I Have Housing Concerned About Future Housing: No Difficulty Paying Gas/Electric Bills: No Difficulty Paying for Meds: No Currently Unemployed: No Education: High School Diploma/GED Difficulty w/ Childcare or Family Care: No Living arrangements: with family Occupation/Education: occupation Anes - Eval Final PreProcedure Day of Procedure 03/14/24 07:31 Patient weight: obese Heart: regular rate and rhythm Lungs: clear to auscultation Airway: Mallampati scale class III Neurological: alert and oriented Last oral intake: >/= 8 hours ASA classification: III Emergent: no Anesthetic plan: proceed Anesthesia type and monitoring: general
[2024-03-14 07:33] LABS: Glucose Point of Care 118 mg/dl (65-105)
--- NOTE | 2024-03-14 07:56 | PM.HPGS ---
History of Present Illness History of Present Illness Consent: Risks, benefits, and alternatives have been discussed and questions answered. Patient agrees to proceed with procedure. Chief complaint: other fecal abnormalities Narrative: Dinora Canas is a 48 year old female here for first colonoscopy, + cologuard Review of Systems Review of Systems: All systems reviewed & are unremarkable except as noted in HPI and below PMFSH Past Medical History Medical History (Updated 03/14/24 @ 07:57 by Jef Lyle MD) Diabetic foot ulcer associated with diabetes mellitus due to underlying condition EBV infection Gallstones Hepatitis History of CVA (cerebrovascular accident) Hyperlipidemia Hypertension Hyperthyroidism Positive colorectal cancer screening using Cologuard test Seasonal allergic rhinitis Splenic infarct Thyroid nodule greater than or equal to 1 cm in diameter incidentally noted on imaging study Thyromegaly Type 2 diabetes mellitus without complication Surgical History Surgical History H/O section Family History Family History Father Diabetes mellitus Hypertension Depression Mother Hypertension Grandparent Hypertension Cerebrovascular accident Son Asthma Social History Social History Smoking status: Never smoker Second hand tobacco smoke exposure: Yes Alcohol intake: former Substance use: never Substance use type: does not use Lack of Transportation: No Lack of Food: Never True Current Housing: I Have Housing Concerned About Future Housing: No Difficulty Paying Gas/Electric Bills: No Difficulty Paying for Meds: No Currently Unemployed: No Education: High School Diploma/GED Difficulty w/ Childcare or Family Care: No Living arrangements: with family Occupation/Education: occupation Meds Home Medications and Allergies Home Medications Medication Instructions Recorded Confirmed Type lancing device (lancing device #100 ea 07/28/22 03/14/24 Rx with lancets) aspirin 325 mg tablet 325 mg PO DAILY 02/15/23 03/14/24 History glucagon 3 mg/actuation nasal spray 3 mg intranasal ONCE #2 ea 08/15/23 03/14/24 Rx insulin glargine 100 unit/mL (3 15 unit (0.15 mL) subcut QPM 90 08/15/23 03/14/24 Rx mL) subcutaneous pen (Lantus days #15 mL Solostar U-100 Insulin) insulin lispro 100 unit/mL 60 unit (0.6 mL) subcut DAILY 90 08/15/23 03/14/24 Rx subcutaneous pen (Humalog KwikPen days #60 mL (U-100) Insulin) blood-glucose sensor (FreeStyle #6 ea 09/26/23 03/14/24 Rx Tiffanie 3 Sensor device) lisinopril 20 mg tablet 20 mg PO DAILY #30 tabs 01/29/24 03/14/24 Rx pen needle, diabetic 32 gauge x #400 ea 02/05/24 03/14/24 Rx 5/32 (Comfort EZ Pen Pierron) methimazole 5 mg tablet 5 mg PO DAILY #90 tabs 02/20/24 03/14/24 Rx tirzepatide 2.5 mg/0.5 mL 2.5 mg (0.5 mL) subcut WEEKLY 4 02/20/24 03/14/24 Rx subcutaneous pen injector weeks #2 mL (Mounjaro) atorvastatin 40 mg tablet 40 mg PO DAILY 03/10/24 03/14/24 History Allergies Allergy/AdvReac Type Severity Reaction Status Date / Time adhesive tape Allergy Severe colon to Verified 03/14/24 07:19 skin peanut AdvReac Severe Gastrointestinal Verified 03/14/24 07:19 Upset Vital Signs Vital Signs - 24 hr 03/14/24 07:21 Temperature 96.8 F L Pulse Rate 96 Respiratory Rate 17 Blood Pressure 155/84 H Pulse Oximetry 97 Oxygen Delivery Room Air Exam Const: General: comfortable and no acute distress HENMT: Face/Nose/Sinus: Normal nares present Eyes: General: appearance normal, both eyes and all related structures Neck: Neck: no JVD Resp: Auscultation: clear to auscultation bilaterally Cardio: Rate: regular rate Rhythm: regular rhythm GI: Inspection: non-distended GI Palp: Yes Soft t
[2024-03-14 08:10] VITALS: BP 103/60; PULSE 80; RESP 15; O2SAT 98
[2024-03-14 08:20] VITALS: BP 125/72; PULSE 79; RESP 20; O2SAT 98
[2024-03-14 08:30] VITALS: BP 148/72; PULSE 80; RESP 20; O2SAT 99
[2024-03-14 08:36] LABS: Glucose Point of Care 124 mg/dl (65-105)
== END 2024-03-14 08:38 | disposition home or self-care (01) ==
PROVIDERS: PCP Family Medicine; Referring Provider Family Medicine; Visit Provider Internal Medicine Gastroenterology
PROC: 0DJD8ZZ Inspection of Lower Intestinal Tract, Via Natural or Artificial Opening Endoscopic (ICD-10-PCS; CPT 45378; principal; 2024-03-14 08:30)
DX: R19.5 Other fecal abnormalities (principal); D12.4 Benign neoplasm of descending colon; D12.5 Benign neoplasm of sigmoid colon; K64.8 Other hemorrhoids; E11.9 Type 2 diabetes mellitus without complications; E78.5 Hyperlipidemia, unspecified; I10 Essential (primary) hypertension; E05.90 Thyrotoxicosis, unspecified without thyrotoxic crisis or storm
CPT/HCPCS: 45385; 82948; 88305; J2704; J7120